=== PATIENT | female | born 1975 | race Caucasian/White ===

== ENCOUNTER 2018-05-30 20:42 | Emergency (ER) | payer SELFPAY ==
[2018-05-30] MEDS ORDERED: Ketorolac 60 MG/2 ML SDV IM ONE (21:05)
--- NOTE | 2018-05-30 21:10 | EDM.PDOC ---
ED HPI GENERAL MEDICAL PROBLEM - General Chief Complaint: Lower Extremity Injury/Pain Stated Complaint: PAIN IN LOWER RIGHT LEG Time Seen by Provider: 05/30/18 20:45 - History of Present Illness INITIAL COMMENTS - FREE TEXT/NARRATIVE: HISTORY AND PHYSICAL: History of present illness: The patient is a 42-year-old female who presents with complaints of right calf pain that started about 4 AM while she was sleeping. She denies any trauma to the area and has no bony pain but says that the pain woke her from sleep it is been persistent all day in her right calf area. It does not radiate to her thigh. The patient says she has had sciatica in the past which sometimes will get aggravated and trigger muscle spasms so she has been dealing with that in the past and she used all of her treatment modalities and the pain did not go away. She took one dose of Motrin 600 mg this morning but nothing else and has been applying topical creams. She denies any neurosensory changes in her foot and has no anterior leg pain noted knee pain and no distal ankle or foot pain. She currently is not describing any lower back pain at this time. The pain in the calf does not radiate up to her thigh posteriorly or anteriorly. The patient was concerned because she had an abdominal hysterectomy and abdominal mass removed the beginning of February. Review of systems: As per history of present illness and below otherwise all systems reviewed and negative. Past medical history: As per history of present illness and as reviewed below otherwise noncontributory. Surgical history: As per history of present illness and as reviewed below otherwise noncontributory. Social history: No reported history of drug or alcohol abuse. Family history: As per history of present illness and as reviewed below otherwise noncontributory. Physical exam: General: Well-developed well-nourished overweight female who is nontoxic and vital signs are noted by me HEENT: Atraumatic, normocephalic, negative for conjunctival pallor or scleral icterus, mucous membranes moist, throat clear, neck supple, nontender, trachea midline. Lungs: Clear to auscultation, breath sounds equal bilaterally, chest nontender. Heart: S1S2, regular rate and rhythm no overt murmurs Abdomen: Soft, nondistended, nontender. NABS Pelvis: Stable nontender. Genitourinary: Deferred. Rectal: Deferred. Extremities: Atraumatic, full range of motion without defects or deficits and there is no leg asymmetry. There is no pedal edema appreciated. There is some mild tenderness when I palpate the calf on the right but there is no popliteal fossa tenderness or anterior medial thigh tenderness with palpation. The legs are negative for cords Neurovascular unremarkable. There are no bony defects tenderness or soft tissue swelling appreciated in the anterior leg. Neuro: Awake, alert, oriented. Cranial nerves II through XII unremarkable. Cerebellum unremarkable. Motor and sensory unremarkable throughout. Exam nonfocal. Diagnostics: Venous Doppler right lower extremity Therapeutics: Toradol Impression: Right calf pain Definitive disposition and diagnosis as appropriate pending reevaluation and review of above. right leg Pain Score (Numeric/FACES): 7 - Related Data Allergies Allergy/AdvReac Type Severity Reaction Status Date / Time Iodinated Contrast- Oral and Allergy Rash Verified 05/30/18 20:56 IV Dye [Iodinated Contrast Media - IV Dye] Home Meds: Home Meds Esomeprazole [NexIUM] 40 mg PO DAILY 08/02/13 [History] Montelukast [Singulair] 10 mg PO DAILY 08/02/13 [History] Albuterol [Proventil Neb Soln] 0.63 mg NEB DAILY 01/09/15 [History] Fluticasone/Salmeterol [Advair Diskus 500-50] 1 puff INH BID 04/22/16 [History] Ibuprofen 600 mg PO ASDIRECTED PRN 05/30/18 [History] Past Medical History Cardiovascular History: Reports: CAD Respiratory History: Reports: Asthma Gastrointestinal History: Reports: Other (See Below) Other Gastrointestinal History: Mass Genitourinary History: Reports: None Neurological History: Reports: Other (See Below) Other Neuro History: sleep apnea Psychiatric History: Reports: None Hematologic History: Reports: Anemia Dermatologic History: Reports: None - Infectious Disease History Infectious Disease History: Reports: Chicken Pox - Past Surgical History HEENT Surgical History: Reports: Tonsillectomy Cardiovascular Surgical History: Reports: Other (See Below) GI Surgical History: Reports: Cholecystectomy Other Musculoskeletal Surgeries/Procedures:: hip surgery Social & Family History - Family History Cardiac: Reports: [place] Endocrine/Metabolic: Reports: Diabetes, Type I, Diabetes, type II Oncologic: Reports: Breast, Pancreatic - Caffeine Use Caffeine Use: Reports: Coffee, Soda Review of Systems - Review of Systems Review Of Systems: ROS reveals no pertinent complaints other than HPI. ED EXAM, GENERAL - Physical Exam Exam: See Below (See dictation) Course - Vital Signs Last Recorded V/S: Last Vital Signs Temp 35.9 C 05/30/18 20:45 Pulse 91 05/30/18 20:45 Resp 18 05/30/18 20:45 BP 193/70 H 05/30/18 20:45 Pulse Ox 96 05/30/18 20:45 - Orders/Labs/Meds Meds: Medications Discontinued Medications Generic Name Dose Route Start Last Admin Trade Name Zuleika PRN Reason Stop Dose Admin Ketorolac Tromethamine 60 mg 05/30/18 21:05 05/30/18 21:23 Toradol IM 05/30/18 21:06 60 mg ONETIME ONE Administration Departure - Departure Time of Disposition: 22:03 Disposition: Home, Self-Care 01 Condition: Good Clinical Impression: Right calf pain - Discharge Information Referrals: PCP,None [Primary Care Provider] - Forms: ED Department Discharge Additional Instructions: The following information is given to patients seen in the emergency department who are being discharged to home. This information is to outline your options for follow-up care. We provide all patients seen in our emergency department with a follow-up referral. The need for follow-up, as well as the timing and circumstances, are variable depending upon the specifics of your emergency department visit. If you don't have a primary care physician on staff, we will provide you with a referral. We always advise you to contact your personal physician following an emergency department visit to inform them of the circumstance of the visit and for follow-up with them and/or the need for any referrals to a consulting specialist. The emergency department will also refer you to a specialist when appropriate. This referral assures that you have the opportunity for followup care with a specialist. All of these measure are taken in an effort to provide you with optimal care, which includes your followup. Under all circumstances we always encourage you to contact your private physician who remains a resource for coordinating your care. When calling for followup care, please make the office aware that this follow-up is from your recent emergency room visit. If for any reason you are refused follow-up, please contact the [facility] emergency department at and ask to speak to the emergency department charge nurse. [facility] Primary care- Internal Medicine and Family [place] [id number] [place] [id number] Ice area after any activities and use [id number] ibuprofen/Advil 600-800 mg every 6-8 hours and you may also add Tylenol. Please fill the prescription for Voltaren gel and apply to the area as you choose.: Schedule follow-up appointment with her provider in the clinic for further care and reevaluation and return here as needed and as discussed
--- NOTE | 2018-05-30 21:59 | US ---
INDICATION: right leg pain RIGHT LOWER EXTREMITY VENOUS DUPLEX ULTRASOUND TECHNIQUE: Duplex sonography using grayscale imaging as well as color and spectral Doppler interrogation was performed over the right lower extremity with attention to the deep venous system. FINDINGS: The right common femoral, femoral, deep femoral, popliteal, and posterior tibial veins show normal compressibility, color Doppler flow, and augmentation response. IMPRESSION: No evidence of deep venous thrombosis in the right lower extremity. CHEPE CARREON MD [facility] Dictated by: Alfredo Carreon MD @ 05/30/2018 21:58:15 (Electronically Signed)
[2018-05-30 22:27] VITALS: BP 140/80
== END 2018-05-30 22:25 | disposition home or self-care (01) ==
LOC: MW.ED 20:42
DX: M79.661 Pain in right lower leg (principal); J45.909 Unspecified asthma, uncomplicated; Z91.041 Radiographic dye allergy status; Z79.899 Other long term (current) drug therapy; Z90.49 Acquired absence of other specified parts of digestive tract; Z98.890 Other specified postprocedural states
CPT/HCPCS: 93971; 96372; 99283; J1885

== ENCOUNTER 2019-05-23 16:24 | Emergency (ER) | payer MEDICAID ==
[2019-05-23] MEDS ORDERED: methylPREDNISolone Sodium Succinate 125 MG/2 ML SDV IM ONE (17:17)
[2019-05-23] MEDS ORDERED: Ketorolac 60 MG/2 ML SDV IM ONE (17:17)
--- NOTE | 2019-05-23 17:23 | EDM.PDOC ---
ED HPI GENERAL MEDICAL PROBLEM - General Chief Complaint: Lower Extremity Injury/Pain Stated Complaint: NERVE PAIN IN ANKLE Time Seen by Provider: 05/23/19 16:29 Source of Information: Reports: Patient History Limitations: Reports: No Limitations - History of Present Illness INITIAL COMMENTS - FREE TEXT/NARRATIVE: HISTORY AND PHYSICAL: History of present illness: Patient is a 43-year-old female who presents to the ED today with concern of an exacerbation of sciatic nerve pain. Patient states she has been dealing with the sciatic nerve pain for about a year and has been in physical therapy for this. Patient states that she is set up to see the neurosurgeon but due to the current outbreak of the cov-ID 19, this has been delayed. Patient states usually when she has exacerbation of her sciatic nerve pain, she gets a shot of Toradol and Solu-Medrol from her primary care provider. Patient states she was unable to make an appointment in the clinic as they are limiting patient's being seen due to the recent outbreak. Patient states that her symptoms today are typical of her usual sciatic nerve pain and has not changed or new. Patient states she does get some "jessica horse" of her right ankle periodically with this which is the most bothersome to her. Patient states when her mom moves a "charley horse" the other way, this improves. Patient denies any loss retention of bowel bladder function or saddle anesthesia. Patient denies fever, chills, chest pain, shortness of breath, or cough. Denies headache, neck stiff ness, change in vision, syncope, or near syncope. Denies nausea, vomiting, abdominal pain, diarrhea, constipation, or dysuria. Has not noted any blood in urine or stool. Patient has been eating and drinking appropriately. Review of systems: As per history of present illness and below otherwise all systems reviewed and negative. Past medical history: As per history of present illness and as reviewed below otherwise noncontributory. Surgical history: As per history of present illness and as reviewed below otherwise noncontributory. Social history: See social history for further information Family history: As per history of present illness and as reviewed below otherwise noncontributory. Physical exam: General: Patient is alert, oriented, and in no acute distress. Patient sitting comfortably on exam table. HEENT: Atraumatic, normocephalic, pupils equal and reactive bilaterally, negative for conjunctival pallor or scleral icterus, mucous membranes moist, TMs normal bilaterally, throat clear, neck supple, nontender, trachea midline. No drooling or trismus noted. No meningeal signs. No hot potato voice noted. Lungs: Clear to auscultation, breath sounds equal bilaterally, chest nontender. Heart: S1S2, regular rate and rhythm without overt murmur Abdomen: Soft, nondistended, nontender. Negative for masses or hepatosplenomegaly. Negative for costovertebral tenderness. Pelvis: Stable nontender. Genitourinary: Deferred. Rectal: Deferred. Skin: Intact, warm, dry. No lesions or rashes noted. Extremities: Patient ambulatory into the ED without difficulty. No obvious deformity of the complete spine. No step-offs, crepitus, or point tenderness to palpation of the complete spine. SLR intact bilaterally. Patellar reflex intact bilaterally. Heel toe gait intact. Atraumatic, negative for cords or calf pain. Neurovascular unremarkable. Neuro: Awake, alert, oriented. Cranial nerves II through XII unremarkable. Cerebellum unremarkable. Motor and sensory unremarkable throughout. Exam nonfocal. Notes: Patient has Flexeril available to her at home. Discussed importance for follow-up with the neurosurgeon as well as her primary care provider. Voices understanding and is agreeable to plan of care. Denies any further questions or concerns at this time. Diagnostics: None Therapeutics: Toradol, Solumedrol Prescription: None Impression: Sciatic nerve pain, right Plan: 1. When resting please lay on a flat firm surface. Limit your mobility to prevent muscle stiffness. Get up to ambulate/move around/gentle stretching multiple times throughout the day. May alternate heat and ice to painful areas. 2. Tylenol as needed for back pain. Otherwise, take the prescribed Flexeril that you have already at home and ibuprofen as directed. Flexeril, this medication may cause drowsiness, so do not take it while driving or needing to be functioning outside of the home. 3. Follow-up with your primary care provider/neurosurgeon as discussed. Return to the ED as needed and as discussed. Definitive disposition and diagnosis as appropriate pending reevaluation and review of above. Right Leg Pain Score (Numeric/FACES): 9 - Related Data Allergies Allergy/AdvReac Type Severity Reaction Status Date / Time Iodinated Contrast Media Allergy Anaphylactic Verified 05/23/19 16:58 [Iodinated Contrast Media - Shock IV Dye] Home Meds: Home Meds Esomeprazole [NexIUM] 40 mg PO DAILY 08/02/13 [History] Montelukast [Singulair] 10 mg PO DAILY 08/02/13 [History] Albuterol [Proventil Neb Soln] 0.63 mg NEB DAILY 01/09/15 [History] Ibuprofen 600 mg PO ASDIRECTED PRN 05/30/18 [History] Cyclobenzaprine [Flexeril] 10 mg PO DAILY 05/23/19 [History] Gabapentin [Neurontin] 400 mg PO TID 05/23/19 [History] Past Medical History Cardiovascular History: Reports: None Respiratory History: Reports: Asthma Gastrointestinal History: Reports: GERD, Other (See Below) Other Gastrointestinal History: Mass Genitourinary History: Reports: None 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: Neurological History: Reports: Other (See Below) Other Neuro History: sleep apnea uses c-pap Psychiatric History: Reports: None Endocrine/Metabolic History: Reports: Obesity/BMI 30+ Hematologic History: Reports: Anemia Immunologic History: Reports: None Oncologic (Cancer) History: Reports: None Dermatologic History: Reports: None - Infectious Disease History Infectious Disease History: Reports: Chicken Pox - Past Surgical History Head Surgeries/Procedures: Reports: None HEENT Surgical History: Reports: Tonsillectomy Cardiovascular Surgical History: Reports: Other (See Below) GI Surgical History: Reports: Cholecystectomy Female Surgical History: Reports: D&C, Hysterectomy Other Musculoskeletal Surgeries/Procedures:: hip surgery Social & Family History - Family History Family Medical History: Noncontributory Cardiac: Reports: [place] Endocrine/Metabolic: Reports: Diabetes, Type I, Diabetes, type II Oncologic: Reports: Breast, Pancreatic - Tobacco Use Smoking Status *Q: Never Smoker - Caffeine Use Caffeine Use: Reports: Coffee, Soda - Recreational Drug Use Recreational Drug Use: No Review of Systems - Review of Systems Review Of Systems: Comprehensive ROS is negative, except as noted in HPI. ED EXAM, GENERAL - Physical Exam Exam: See Below (see dictation) Course - Vital Signs Last Recorded V/S: Last Vital Signs Temp 96.7 F L 05/23/19 16:55 Pulse 105 H 05/23/19 16:55 Resp 22 H 05/23/19 16:55 BP 160/100 H 05/23/19 16:55 Pulse Ox 95 05/23/19 16:55 - Orders/Labs/Meds Orders: Active Orders 24 hr Category Date Time Status Ketorolac [Toradol] Med 05/23/19 17:17 Once 60 mg IM ONETIME ONE methylPREDNISolone Sod Succ [Solu-MEDROL] Med 05/23/19 17:17 Once 125 mg IM ONETIME ONE Departure - Departure Time of Disposition: 17:18 Disposition: Home, Self-Care 01 Clinical Impression: Sciatic nerve pain Qualifiers: Laterality: right Qualified Code(s): M54.31 - Sciatica, right side - Discharge Information Referrals: Valery Lomas, TECHNICAL SUPPORT 1 SOFTWARE ENGINEER [Primary Care Provider] - Additional Instructions: The following information is given to patients seen in the emergency department who are being discharged to home. This information is to outline your options for follow-up care. We provide all patients seen in our emergency department with a follow-up referral. The need for follow-up, as well as the timing and circumstances, are variable depending upon the specifics of your emergency department visit. If you don't have a primary care physician on staff, we will provide you with a referral. We always advise you to contact your personal physician following an emergency department visit to inform them of the circumstance of the visit and for follow-up with them and/or the need for any referrals to a consulting specialist. The emergency department will also refer you to a specialist when appropriate. This referral assures that you have the opportunity for follow-up care with a specialist. All of these measure are taken in an effort to provide you with optimal care, which includes your follow-up. Under all circumstances we always encourage you to contact your private physician who remains a resource for coordinating your care. When calling for follow-up care, please make the office aware that this follow-up is from your recent emergency room visit. If for any reason you are refused follow-up, please contact the [facility] Emergency Department at and asked to speak to the emergency department charge nurse. [facility] [address] [place] [address] [phone] [place] [address] 1. When resting please lay on a flat firm surface. Limit your mobility to prevent muscle stiffness. Get up to ambulate/move around/gentle stretching multiple times throughout the day. May alternate heat and ice to painful areas. 2. Tylenol as needed for back pain. Otherwise, take the prescribed Flexeril that you have already at home and ibuprofen as directed. Flexeril, this medication may cause drowsiness, so do not take it while driving or needing to be functioning outside of the home. 3. Follow-up with your primary care provider/neurosurgeon as discussed. Return to the ED as needed and as discussed. Sepsis Event Note - Evaluation Sepsis Screening Result: No Definite Risk - Focused Exam Vital Signs: Vital Signs Temp Pulse Resp BP Pulse Ox 05/23/19 16:55 96.7 F L 105 H 22 H 160/100 H 95 Date Exam was Performed: 05/23/19 Time Exam was Performed: 17:18 - My Orders Last 24 Hours: My Active Orders 05/23/19 17:17 Ketorolac [Toradol] 60 mg IM ONETIME ONE methylPREDNISolone Sod Succ [Solu-MEDROL] 125 mg IM ONETIME ONE - Assessment/Plan Last 24 Hours: My Active Orders 05/23/19 17:17 Ketorolac [Toradol] 60 mg IM ONETIME ONE methylPREDNISolone Sod Succ [Solu-MEDROL] 125 mg IM ONETIME ONE
[2019-05-23 17:47] VITALS: BP 163/84; PULSE 95
== END 2019-05-23 17:47 | disposition home or self-care (01) ==
LOC: MW.ED 16:24
DX: M54.31 Sciatica, right side (principal); J45.909 Unspecified asthma, uncomplicated; K21.9 Gastro-esophageal reflux disease without esophagitis; E66.9 Obesity, unspecified; Z68.43 Body mass index [BMI] 50.0-59.9, adult; Z91.041 Radiographic dye allergy status; Z79.899 Other long term (current) drug therapy
CPT/HCPCS: 96372; 99283; J1885; J2930

== ENCOUNTER 2019-11-20 15:56 | Emergency (ER) | payer MEDICAID ==
--- NOTE | 2019-11-20 16:01 | EDM.PDOC ---
ED HPI GENERAL MEDICAL PROBLEM - General Stated Complaint: BACK PAIN Time Seen by Provider: 11/20/19 15:57 Source of Information: Reports: Patient History Limitations: Reports: No Limitations - History of Present Illness INITIAL COMMENTS - FREE TEXT/NARRATIVE: 44-year-old obese female with history of hysterectomy presents with generalized malaise, nausea, feeling shaky and weak today. 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 She felt so weak afterwards she felt like she wanted to collapse. She has a history of chronic back pain and is currently undergoing physical therapy but her pain got worse today, localized in the lower back, described as aching tightness, nonradiating, moderate, constant, exacerbated with movement, with no alleviating factors. She drank 2 bottles of water today. She denies fever, chills, vomiting, diarrhea, urinary or fecal incontinence, pain, shortness of breath, abdominal pain. She took Mobic and gabapentin for her low back pain which offered mild relief. ROS: A 10-point review of systems, other than pertinent positives and negatives as stated per HPI, is otherwise negative Past medical history: No additional pertinent history Past Surgical history: No additional pertinent history Social history: No additional pertinent history Family history: No additional pertinent history PHYSICAL EXAM General: AOx4, GCS = 15, obese, mild distress HEENT: dry mucous membrane Neck: supple, no meningismus, no Kernig or Brudzinski Cardiac: S1S2 RRR Respiratory: CTAB, no crackles or rales, no wheezing Abdomen: Soft, nontender, no rebound or guarding, nondistended, no pulsatile m ass. Back: nontender to C/T/L-spine. Tenderness to lumbar bilateral paraspinal muscle with spasm. Musculoskeletal: NVI distally, no deformity Neuro: No focal deficits back Pain Score (Numeric/FACES): 10 - Related Data Allergies Allergy/AdvReac Type Severity Reaction Status Date / Time Iodinated Contrast Media Allergy Anaphylactic Verified 05/23/19 16:58 [Iodinated Contrast Media - Shock IV Dye] Home Meds: Home Meds Montelukast [Singulair] 10 mg PO DAILY 08/02/13 [History] Albuterol [Proventil Neb Soln] 0.63 mg NEB DAILY 01/09/15 [History] Ibuprofen 600 mg PO ASDIRECTED PRN 05/30/18 [History] Cyclobenzaprine [Flexeril] 10 mg PO DAILY 05/23/19 [History] Gabapentin [Neurontin] 800 mg PO BID 05/23/19 [History] Meloxicam [Mobic] 15 mg PO DAILY 11/20/19 [History] Pantoprazole Sodium [Protonix] 40 mg PO DAILY 11/20/19 [History] Past Medical History Cardiovascular History: Reports: None Respiratory History: Reports: Asthma Gastrointestinal History: Reports: GERD, Other (See Below) Other Gastrointestinal History: Mass Genitourinary History: Reports: None 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: Neurological History: Reports: Other (See Below) Other Neuro History: sleep apnea uses c-pap Psychiatric History: Reports: None Endocrine/Metabolic History: Reports: Obesity/BMI 30+ Hematologic History: Reports: Anemia Immunologic History: Reports: None Oncologic (Cancer) History: Reports: None Dermatologic History: Reports: None - Infectious Disease History Infectious Disease History: Reports: Chicken Pox - Past Surgical History Head Surgeries/Procedures: Reports: None HEENT Surgical History: Reports: Tonsillectomy Cardiovascular Surgical History: Reports: Other (See Below) GI Surgical History: Reports: Cholecystectomy Female Surgical History: Reports: D&C, Hysterectomy Other Musculoskeletal Surgeries/Procedures:: hip surgery Social & Family History - Family History Family Medical History: Noncontributory Cardiac: Reports: [place] Endocrine/Metabolic: Reports: Diabetes, Type I, Diabetes, type II Oncologic: Reports: Breast, Pancreatic - Caffeine Use Caffeine Use: Reports: Coffee, Soda ED ROS GENERAL - Review of Systems Review Of Systems: See Below (see dictation) ED EXAM, GENERAL - Physical Exam Exam: See Below (see dictation) EKG INTERPRETATION EKG Interpretation Comments: 101 bpm, sinus tachycardia, normal QRS interval, no STEMI. EKG and rhythm strip interpreted by me at 1701 Course - Vital Signs Last Recorded V/S: Last Vital Signs Temp 97.5 F 11/20/19 16:09 Pulse 106 H 11/20/19 16:09 Resp 20 11/20/19 16:09 BP 105/49 L 11/20/19 16:09 Pulse Ox 95 11/20/19 16:09 - Orders/Labs/Meds Orders: Active Orders 24 hr Category Date Time Status EKG Documentation Completion [RC] STAT Care 11/20/19 16:41 Active Sodium Chloride 0.9% [Saline Flush] Med 11/20/19 16:40 Active 10 ml FLUSH ASDIRECTED PRN Sodium Chloride 0.9% [Saline Flush] Med 11/20/19 16:40 Active 2.5 ml FLUSH ASDIRECTED PRN Saline Lock Insert [OM.PC] Stat Oth 11/20/19 16:41 Ordered Medication Orders Sodium Chloride (Saline Flush) 10 ml FLUSH ASDIRECTED PRN PRN Reason: Keep Vein Open Sodium Chloride (Saline Flush) 2.5 ml FLUSH ASDIRECTED PRN PRN Reason: Keep Vein Open Labs: Laboratory Tests 11/20/19 11/20/19 11/20/19 Range/Units 17:02 17:02 17:47 WBC 12.06 H (4.0-11.0) K/uL RBC 4.87 (4.30-5.90) M/uL Hgb 12.4 (12.0-16.0) g/dL Hct 40.1 (36.0-46.0) % MCV 82.3 (80.0-98.0) fL MCH 25.5 L (27.0-32.0) pg MCHC 30.9 L (31.0-37.0) g/dL RDW Std Deviation 48.4 (28.0-62.0) fl RDW Coeff of Elvis 16 H (11.0-15.0) % Plt Count 372 (150-400) K/uL MPV 9.40 (7.40-12.00) fL Neut % (Auto) 81.2 H (48.0-80.0) % Lymph % (Auto) 14.1 L (16.0-40.0) % [place] % (Auto) 3.2 (0.0-15.0) % Eos % (Auto) 1.2 (0.0-7.0) % Baso % (Auto) 0.3 (0.0-1.5) % Neut # (Auto) 9.8 H (1.4-5.7) K/uL Lymph # (Auto) 1.7 (0.6-2.4) K/uL [place] # (Auto) 0.4 (0.0-0.8) K/uL Eos # (Auto) 0.1 (0.0-0.7) K/uL Baso # (Auto) 0.0 (0.0-0.1) K/uL Nucleated RBC % 0.0 /100WBC Nucleated RBCs # 0 K/uL Sodium 142 (136-145) mmol/L Potassium 3.2 L (3.5-5.1) mmol/L Chloride 104 (98-107) mmol/L Carbon Dioxide 28.8 (21.0-32.0) mmol/L BUN 19 H (7.0-18.0) mg/dL Creatinine 1.3 H (0.6-1.0) mg/dL Est Cr Clr Drug Dosing TNP Estimated GFR (MDRD) 44.3 ml/min Glucose 113 H (74-106) mg/dL Calcium 8.6 (8.5-10.1) mg/dL Total Bilirubin 0.4 (0.2-1.0) mg/dL AST 41 H (15-37) IU/L ALT 40 (14-63) IU/L Alkaline Phosphatase 122 H (46-116) U/L Troponin I < 0.050 (0.000-0.056) ng/mL Total Protein 7.4 (6.4-8.2) g/dL Albumin 3.5 (3.4-5.0) g/dL Globulin 3.9 (2.6-4.0) g/dL Albumin/Globulin Ratio 0.9 (0.9-1.6) Urine Color YELLOW Urine Appearance SLT CLOUDY Urine pH 5.5 (5.0-8.0) Ur Specific [place]man >= 1.030 (1.001-1.035) Urine Protein TRACE H (NEGATIVE) mg/dL Urine Glucose (UA) NEGATIVE (NEGATIVE) mg/dL Urine Ketones 15 H (NEGATIVE) mg/dL Urine Occult Blood TRACE-INTACT H (NEGATIVE) Urine Nitrite NEGATIVE (NEGATIVE) Urine Bilirubin SMALL H (NEGATIVE) Urine Ictotest NEGATIVE Urine Urobilinogen 0.2 (<2.0) EU/dL Ur Leukocyte Esterase NEGATIVE (NEGATIVE) Urine RBC 0-3 (0-2/HPF) Urine WBC 0-2 (0-5/HPF) Ur Epithelial Cells MODERATE (NONE-FEW) Urine Bacteria 2+ H (NEGATIVE) Meds: Medications Generic Name Dose Route Start Last Admin Trade Name Freq PRN Reason Stop Dose Admin Sodium Chloride 10 ml 11/20/19 16:40 Saline Flush FLUSH ASDIRECTED PRN Keep Vein Open Sodium Chloride 2.5 ml 11/20/19 16:40 Saline Flush FLUSH ASDIRECTED PRN Keep Vein Open Discontinued Medications Generic Name Dose Route Start Last Admin Trade Name Freq PRN Reason Stop Dose Admin Acetaminophen 0 mg 11/20/19 16:40 11/20/19 17:28 Tylenol PO 11/20/19 16:41 Not Given ONETIME ONE Lactated Ringer's 1,000 mls @ 999 mls/hr 11/20/19 16:40 11/20/19 17:25 Ringers, Lactated IV 11/20/19 17:40 999 mls/hr .BOLUS ONE Administration Ketorolac Tromethamine 30 mg 11/20/19 16:46 11/20/19 17:19 Toradol IM 11/20/19 16:47 30 mg ONETIME ONE Administration - Re-Assessments/Exams Free Text/Narrative Re-Assessment/Exam: 11/20/19 18:45 After Decadron and IV Toradol and IV fluids in the ER, the patient improved and is currently stable for discharge. I performed a repeat exam and did not appreciate new abnormal findings. Patient exhibits normal vital signs and has a normal gait on road test. I advised the patient to return to the ER for reevaluation if symptoms worsened, including fever, worsening pain, or any other worrisome symptoms. I instructed the patient to follow up with their PCP within 2-3 days. Directed her to continue taking her Mobic and muscle relaxers that she has at home. Ice pack to affected site. MEDICAL DECISION MAKING: I reviewed the patients past medical records, lab and radiographic findings. I discussed the case with the patient. My differential diagnosis included: Musculoskeletal strain, heat exhaustion, electrolyte abnormality. Patient's EKG and troponin were unremarkable, I do not suspect atypical chest pain. Patient's back pain is suggestive of musculoskeletal strain. There are no complaints of urinary or fecal incontinence, focal numbness or weakness. The patient has a normal gait in the ER. There is no evidence of fever, IV drug use, recent back surgery, or immunocompromised state. I do not suspect caude equine syndrome or cord compression which would warrant further imaging. Departure - Departure Time of Disposition: 18:46 Disposition: Home, Self-Care 01 Condition: Good Clinical Impression: Low back strain, Dehydration, Overexertion due to repetitive movements - Discharge Information *PRESCRIPTION DRUG MONITORING PROGRAM REVIEWED*: Not Applicable *COPY OF PRESCRIPTION DRUG MONITORING REPORT IN PATIENT ADY: Not Applicable Instructions: Lumbar Sprain, Muscle Strain, [id number], Dehydration, Adult, Flox-[id number], How to Use Cold Therapy, [id number] Referrals: Rusty Richardson MD [Ordering Only Provider] - 3 Days Forms: ED Department Discharge Additional Instructions: The need for follow-up, as well as the timing and circumstances, are variable depending upon the specifics of your emergency department visit. If you don't have a primary care physician on staff, we will provide you with a referral. We always advise you to contact your personal physician following an emergency department visit to inform them of the circumstance of the visit and for follow-up with them and/or the need for any referrals to a consulting specialist. The emergency department will also refer you to a specialist when appropriate. This referral assures that you have the opportunity for follow-up care with a specialist. All of these measure are taken in an effort to provide you with optimal care, which includes your follow-up. Under all circumstances we always encourage you to contact your private physician who remains a resource for coordinating your care. When calling for follow-up care, please make the office aware that this follow-up is from your recent emergency room visit. If for any reason you are refused follow-up, please contact the [facility] Emergency Department at and asked to speak to the emergency department charge nurse. If you do not have a primary care doctor, please follow up with the clinics below within 3-5 days. [facility] [place] [address] [place] [address] [facility] [address] [place] [address] Sepsis Event Note (ED) - Focused Exam Vital Signs: Vital Signs Temp Pulse Resp BP Pulse Ox 11/20/19 16:09 97.5 F 106 H 20 105/49 L 95 - My Orders Last 24 Hours: My Active Orders 11/20/19 16:40 Sodium Chloride 0.9% [Saline Flush] 10 ml FLUSH ASDIRECTED PRN Sodium Chloride 0.9% [Saline Flush] 2.5 ml FLUSH ASDIRECTED PRN 11/20/19 16:41 EKG Documentation Completion [RC] STAT Saline Lock Insert [OM.PC] Stat - Assessment/Plan Last 24 Hours: My Active Orders 11/20/19 16:40 Sodium Chloride 0.9% [Saline Flush] 10 ml FLUSH ASDIRECTED PRN Sodium Chloride 0.9% [Saline Flush] 2.5 ml FLUSH ASDIRECTED PRN 11/20/19 16:41 EKG Documentation Completion [RC] STAT Saline Lock Insert [OM.PC] Stat
[2019-11-20] MEDS ORDERED: Acetaminophen 325 MG/10.15 ML ML PO ONE (16:40)
[2019-11-20] MEDS ORDERED: Lactated Ringers 1,000 ML IV ONE (16:40)
[2019-11-20] MEDS ORDERED: Sodium Chloride 0.9% 10 ML Syringe FLUSH PRN (16:40)
[2019-11-20] MEDS ORDERED: Sodium Chloride 0.9% 2.5 ML Syringe FLUSH PRN (16:40)
[2019-11-20] MEDS ORDERED: Ketorolac 30 MG/ML SDV IM ONE (16:46)
[2019-11-20 17:36] LABS: BLOOD UREA NITROGEN,BUN 19 mg/dL (7.0-18.0); CARBON DIOXIDE,CO2 28.8 mmol/L (21.0-32.0); CHLORIDE,CL 104 mmol/L (98-107); GLUCOSE RANDOM 113 mg/dL (74-106); POTASSIUM,K 3.2 mmol/L (3.5-5.1); SODIUM,NA 142 mmol/L (136-145)
--- NOTE | 2019-11-20 18:29 | CR ---
Chest: Frontal view of the chest was obtained. Comparison: Prior chest x-ray of 04/22/16. Heart size at the upper limits of normal. Lungs are clear with no acute parenchymal change. Bony structures are grossly intact. Impression: 1. Nothing acute is seen on frontal chest x-ray. Diagnostic code #1 Study was dictated in MDT
[2019-11-20] MEDS ORDERED: Dexamethasone 10 MG/ML SDV IVPUSH ONE (18:49)
[2019-11-20 20:37] VITALS: BP 141/80; PULSE 85
== END 2019-11-20 19:19 | disposition home or self-care (01) ==
LOC: MW.ED 15:56
DX: S39.012A Strain of muscle, fascia and tendon of lower back, initial encounter (principal); E86.0 Dehydration; E66.9 Obesity, unspecified; K21.9 Gastro-esophageal reflux disease without esophagitis; J45.909 Unspecified asthma, uncomplicated; Z91.041 Radiographic dye allergy status; Z79.899 Other long term (current) drug therapy; X50.3XXA Overexertion from repetitive movements, initial encounter
CPT/HCPCS: 36415; 71045; 80053; 81001; 84484; 85025; 93005; 96361; 96372; 96374; 99285; J1100; J1885; J7120

== ENCOUNTER 2020-03-02 20:43 | Emergency (ER) | payer MEDICAID, OTHER ==
[2020-03-02] MEDS ORDERED: methylPREDNISolone Sodium Succinate 125 MG/2 ML SDV IM ONE (21:08)
[2020-03-02] MEDS ORDERED: Albuterol/Ipratropium 3.0-0.5 MG/3 ML Neb Soln NEB ONE (21:09)
--- NOTE | 2020-03-02 21:21 | EDM.PDOC ---
ED HPI GENERAL MEDICAL PROBLEM - General Chief Complaint: General Stated Complaint: SICK Time Seen by Provider: 03/02/20 20:44 Source of Information: Reports: Patient History Limitations: Reports: No Limitations - History of Present Illness INITIAL COMMENTS - FREE TEXT/NARRATIVE: Presents to the emergency room complaining of a fall that exacerbating existing problems. The patient is a bit anxious and talks continuously. She complains that last evening she fell in a parking lot on the ice and injured her left ankle and then trying to get up she fell again. This scared her. She has a lot of chronic low back problems and she feels like her back is swollen. When her back is swollen it makes her asthma flareup. She states when she was younger she was hospitalized yearly for an asthma flare but it [the asthma] has been well controlled for some time. She states she went to a professor of engineering who told her she had "silent asthma" and that when it flares she will "just stop breathing and ". She has PRIMITIVO on CPAP nightly. Currently she has no symptoms; no wheeze, shortness of breath, cough. She states that she usually just comes in to the ER and gets a breathing treatment and shot of solumedrol and is fine. Her left ankle hurts and is tender on the top of her foot and on the lateral side but she reports no bruising or swelling. She freely admits that her morbid obesity exacerbates her back problems, sleep apnea, general pain, etc. She states her back pain is at baseline and that she did not fall on her back or specifically injure it. 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 Back and L ankle Pain Score (Numeric/FACES): 10 - Related Data Allergies Allergy/AdvReac Type Severity Reaction Status Date / Time Iodinated Contrast Media Allergy Anaphylactic Verified 03/02/20 20:58 [Iodinated Contrast Media - Shock IV Dye] Home Meds: Home Meds Montelukast [Singulair] 10 mg PO DAILY 08/02/13 [History] Albuterol [Proventil Neb Soln] 0.63 mg NEB DAILY 01/09/15 [History] Ibuprofen 600 mg PO ASDIRECTED PRN 05/30/18 [History] Cyclobenzaprine [Flexeril] 10 mg PO DAILY 05/23/19 [History] Gabapentin [Neurontin] 800 mg PO BID 05/23/19 [History] Meloxicam [Mobic] 15 mg PO DAILY 11/20/19 [History] Pantoprazole Sodium [Protonix] 40 mg PO DAILY 11/20/19 [History] Past Medical History Cardiovascular History: Reports: None Respiratory History: Reports: Asthma Gastrointestinal History: Reports: GERD, Other (See Below) Other Gastrointestinal History: Mass Genitourinary History: Reports: None 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: Neurological History: Reports: Other (See Below) Other Neuro History: sleep apnea uses c-pap Psychiatric History: Reports: None Endocrine/Metabolic History: Reports: Obesity/BMI 30+ Hematologic History: Reports: Anemia Immunologic History: Reports: None Oncologic (Cancer) History: Reports: None Dermatologic History: Reports: None - Infectious Disease History Infectious Disease History: Reports: Chicken Pox - Past Surgical History Head Surgeries/Procedures: Reports: None HEENT Surgical History: Reports: Tonsillectomy Cardiovascular Surgical History: Reports: Other (See Below) GI Surgical History: Reports: Cholecystectomy Female Surgical History: Reports: D&C, Hysterectomy Other Musculoskeletal Surgeries/Procedures:: hip surgery Social & Family History - Family History Family Medical History: No Pertinent Family History Cardiac: Reports: [place] Endocrine/Metabolic: Reports: Diabetes, Type I, Diabetes, type II Oncologic: Reports: Breast, Pancreatic - Caffeine Use Caffeine Use: Reports: Coffee, Soda ED ROS GENERAL - Review of Systems Review Of Systems: Comprehensive ROS is negative, except as noted in HPI. ED EXAM, GENERAL - Physical Exam Exam: See Below Exam Limited By: No Limitations General Appearance: Alert, No Apparent Distress Ears: Normal External Exam Nose: Normal Inspection Throat/Mouth: Normal Inspection Head: Atraumatic, Normocephalic Neck: Normal Inspection Respiratory/Chest: No Respiratory Distress, Lungs Clear, Normal Breath Sounds Cardiovascular: Regular Rate, Rhythm, No Murmur Back Exam: Other (Spinal and paraspinal tenderness in the lumbar area. The patient cried out and started crying when I touched that part of her back. She states it is always this way.) Extremities: Normal Inspection, Other (Ankle and foot without swelling, ecchymosis, erythema. Full range of motion of the ankle and toes without hesitation or limitation. Tender lateral. CMS intact distally, pedal and posttibial pulses strong) Neurological: Alert, Oriented, Normal Cognition Skin Exam: Warm, Dry, Intact, Normal Color, No Rash Course - Vital Signs Last Recorded V/S: Last Vital Signs Temp 36.1 C 03/02/20 21:00 Pulse 95 03/02/20 21:00 Resp 18 03/02/20 21:00 BP 149/92 H 03/02/20 21:00 Pulse Ox 97 03/02/20 21:00 - Orders/Labs/Meds Orders: Active Orders 24 hr Category Date Time Status RT Aerosol Therapy [RC] ASDIRECTED Care 03/02/20 21:09 Ordered Meds: Medications Discontinued Medications Generic Name Dose Route Start Last Admin Trade Name Jordanq PRN Reason Stop Dose Admin Albuterol/Ipratropium 3 ml 03/02/20 21:09 03/02/20 21:34 Duoneb 3.0-0.5 Mg/3 Ml NEB 03/02/20 21:10 3 ml ONETIME ONE Administration Ketorolac Tromethamine 60 mg 03/02/20 21:30 03/02/20 21:32 Toradol IM 03/02/20 21:31 60 mg ONETIME ONE Administration Ketorolac Tromethamine Confirm 03/02/20 21:30 03/02/20 21:34 Toradol Administered 03/02/20 21:31 Not Given Dose 60 mg .ROUTE .STK-MED ONE Methylprednisolone Sodium Succinate 125 mg 03/02/20 21:08 03/02/20 21:29 Solu-Medrol IM 03/02/20 21:09 125 mg ONETIME ONE Administration Departure - Departure Time of Disposition: 21:47 Disposition: Home, Self-Care 01 Condition: Good Clinical Impression: Ankle sprain Qualifiers: Encounter type: initial encounter Involved ligament of ankle: unspecified ligament Laterality: left Qualified Code(s): S93.402A - Sprain of unspecified ligament of left ankle, initial encounter - Discharge Information Referrals: Valery Lomas BORDER PATROL OFFICER [Primary Care Provider] - Forms: ED Department Discharge Additional Instructions: The following information is given to patients seen in the emergency department who are being discharged to home. This information is to outline your options for follow-up care. We provide all patients seen in our emergency department with a follow-up referral. The need for follow-up, as well as the timing and circumstances, are variable depending upon the specifics of your emergency department visit. If you don't have a primary care physician on staff, we will provide you with a referral. We always advise you to contact your personal physician following an emergency department visit to inform them of the circumstance of the visit and for follow-up with them and/or the need for any referrals to a consulting specialist. The emergency department will also refer you to a specialist when appropriate. This referral assures that you have the opportunity for follow-up care with a specialist. All of these measure are taken in an effort to provide you with optimal care, which includes your follow-up. Under all circumstances we always encourage you to contact your private physician who remains a resource for coordinating your care. When calling for follow-up care, please make the office aware that this follow-up is from your recent emergency room visit. If for any reason you are refused follow-up, please contact the [facility] Emergency Department at and asked to speak to the emergency department charge nurse. 1. Use your inhalers daily as prescribed 2. Elevate left ankle. Cool packs 20 minutes every 3-4 hours to prevent swelling 3. Aleve 2 tabs a.m. and p.m. or ibuprofen 2-3 tabs 3 times daily with food. 4. Follow-up with your primary provider. Sepsis Event Note (ED) - Evaluation Sepsis Screening Result: No Definite Risk - Focused Exam Vital Signs: Vital Signs Temp Pulse Resp BP Pulse Ox 03/02/20 21:00 36.1 C 95 18 149/92 H 97 - My Orders Last 24 Hours: My Active Orders 03/02/20 21:09 RT Aerosol Therapy [RC] ASDIRECTED - Assessment/Plan Last 24 Hours: My Active Orders 03/02/20 21:09 RT Aerosol Therapy [RC] ASDIRECTED
[2020-03-02] MEDS ORDERED: Ketorolac 60 MG/2 ML SDV ONE (21:30)
[2020-03-02] MEDS ORDERED: Ketorolac 60 MG/2 ML SDV IM ONE (21:30)
--- NOTE | 2020-03-02 21:35 | CR ---
Indication: Pain. Technique: Three views of the left ankle. Comparison: None Findings: Ankle mortise is intact. The talar dome is intact. No acute fracture or subluxation is identified. A small plantar calcaneal spur is identified. Impression: No acute fracture. Dictated by Krystina Sarabia MD @ Mar 02 2020 9:34PM Signed by Dr. Krystina Sarabia @ Mar 02 2020 9:34PM
[2020-03-02 23:00] VITALS: BP 130/65; PULSE 90
== END 2020-03-02 22:30 | disposition home or self-care (01) ==
LOC: MW.ED 20:43
DX: S93.402A Sprain of unspecified ligament of left ankle, initial encounter (principal); M54.5 Low back pain; J45.909 Unspecified asthma, uncomplicated; K21.9 Gastro-esophageal reflux disease without esophagitis; E66.9 Obesity, unspecified; Z91.041 Radiographic dye allergy status; Z90.49 Acquired absence of other specified parts of digestive tract; Z90.710 Acquired absence of both cervix and uterus; Z79.899 Other long term (current) drug therapy; Z68.41 Body mass index [BMI] 40.0-44.9, adult; W00.0XXA Fall on same level due to ice and snow, initial encounter; Y92.481 Parking lot as the place of occurrence of the external cause
CPT/HCPCS: 73610; 94640; 96372; 99283; J1885; J2930; J7620-GY

== ENCOUNTER 2020-03-29 17:25 | Emergency (ER) | payer MEDICAID, OTHER ==
--- NOTE | 2020-03-29 17:41 | EDM.PDOC ---
ED HPI GENERAL MEDICAL PROBLEM - General Chief Complaint: Back Pain or Injury Stated Complaint: LOWER BACK PAIN Time Seen by Provider: 03/29/20 17:31 Source of Information: Reports: Patient History Limitations: Reports: No Limitations - History of Present Illness INITIAL COMMENTS - FREE TEXT/NARRATIVE: HISTORY AND PHYSICAL: History of present illness: Patient is a 44-year-old female who presents to the emergency room with complaints of left low back pain. She states she has chronic back pain over this last few years, states it flares up every few months requiring additional pain medications. She has an MRI scheduled in the next 2 weeks for her chronic back pain. Denies any injury, trauma or falls. Patient denies any fever, chills, headache, change in vision, syncope or near syncope. Denies any chest pain, shortness of breath or cough. Denies any abdominal pain, nausea, vomiting, diarrhea, constipation or dysuria. Has not noted any blood in urine or stool. Patient has been eating and drinking appropriately. Review of systems: As per history of present illness and below otherwise all systems reviewed and negative. Past medical history: As per history of present illness and as reviewed below otherwise noncontributory. Surgical history: As per history of present illness and as reviewed below otherwise noncontributory. Social history: See social history for further information Family history: As per history of present illness and as reviewed below otherwise noncontributory. Physical exam: General: Well developed and well nourished. Alert and orientated x 3. Nontoxic in appearance and in no acute distress. Vital signs are stable and have been reviewed by me. Nursing notes were reviewed. HEENT: Atraumatic, normocephalic, pupils equal and reactive bilaterally, negative for conjunctival pallor or scleral icterus, mucous membranes moist,trachea midline. No drooling or trismus noted. No meningeal signs. No hot potato voice noted. Lungs: Clear to auscultation bilaterally. No wheezes, rales, or rhonchi. Chest nontender. Normal work of breathing, no accessory muscles used. Heart: S1S2, regular rate and rhythm without overt murmur, gallops, or rubs. No JVD. No peripheral edema Abdomen: Soft, obese, nontender. Negative for masses or costovertebral tenderness. C-spine/Back: No pinpoint vertebral tenderness upon palpation. No crepitus, s tep-offs or obvious deformities. Paraspinous muscular tenderness to the mid left lumbar region. Patient is ambulatory into the emergency room without difficulty or deficit. Able to rock back on heels and walk on toes. Denies any urinary or fecal incontinence. Denies any numbness, tingling or saddle paresthesia. No concerns of serious infection, fracture or cord compression, or cauda equina syndrome. Deep tendon reflexes brisk bilaterally. Skin: Intact, warm, dry. No lesions or rashes noted. Hematologic: No petechiae or purpra. Mucosa appropriate color and normal nail bed color and refill. Extremities: Atraumatic, moves all extremities per self without difficulty or deficits, negative for cords or calf pain. Neurovascular unremarkable. Neuro: Awake, alert, oriented. Cranial nerves II through XII unremarkable. Cerebellum unremarkable. Motor and sensory unremarkable throughout. Exam nonfocal. Psychiatric: Mood and affect are appropriate. Normal thought process. Answering questions appropriately. Notes: *This patient was seen and evaluated during the 2019 SARS-CoV-2 novel coronavirus pandemic period. Community viral transmission is ongoing at time of this encounter and the emergency department is operating under pandemic response procedures. Patient's physical exam is within normal limits. I did discuss with her the option of imaging although this is chronic and she has had multiple x-rays through [facility] in the past. She declines wanting any imaging. She states sweats worked for her in the past is Toradol, Solu-Medrol and muscle relaxers. I have talked with the patient about today's findings, in addition to providing specific details for plan of care. Reassessment at the time of disposition demonstrates that the patient is in no acute distress. The patient is stable for discharge, counseling was provided and we discussed in great detail signs and symptoms that would prompt them to return to the Emergency Department. Medication, follow up and supportive care measures were reviewed and discussed. Voices understanding and is agreeable to plan of care. Denies any further questions or concerns at this time. Diagnostics: Declines Therapeutics: Solu-Medrol, Norflex Prescription: Flexeril Impression: Acute on chronic back pain Plan: 1. The medication you received today does cause drowsiness, so do not drive for the remaining day 2. When resting please lay on a flat firm surface. Limit your immobility to prevent muscle stiffness. Get up to ambulate/move around/gentle stretching multiple times throughout the day. May alternate heat and ice to the painful areas 3. Tylenol as needed for back pain. Otherwise take the prescribed Flexeril as directed. Flexeril as a muscle relaxant, this medication may cause drowsiness a do not take it will driving her needing to be functioning outside of the house. 4. Please follow-up with your primary care provider as we discussed. Keep your appointment for your back MRI and follow-up with your provider for further pain management. Return to the ED as needed and as discussed. Definitive disposition and diagnosis as appropriate pending reevaluation and review of above. Left Lower Back Pain Score (Numeric/FACES): 8 - Related Data Allergies Allergy/AdvReac Type Severity Reaction Status Date / Time Iodinated Contrast Media Allergy Anaphylactic Verified 03/29/20 17:37 [Iodinated Contrast Media - Shock IV Dye] Home Meds: Home Meds Montelukast [Singulair] 10 mg PO DAILY 08/02/13 [History] Albuterol [Proventil Neb Soln] 0.63 mg NEB DAILY 01/09/15 [History] Ibuprofen 600 mg PO ASDIRECTED PRN 05/30/18 [History] Cyclobenzaprine [Flexeril] 10 mg PO DAILY 05/23/19 [History] Gabapentin [Neurontin] 800 mg PO BID 05/23/19 [History] Meloxicam [Mobic] 15 mg PO DAILY 11/20/19 [History] Pantoprazole Sodium [Protonix] 40 mg PO DAILY 11/20/19 [History] Cyclobenzaprine [Flexeril] 10 mg PO TID PRN #21 tab 03/29/20 [Rx] Past Medical History Cardiovascular History: Reports: None Respiratory History: Reports: Asthma Gastrointestinal History: Reports: GERD, Other (See Below) Other Gastrointestinal History: Mass , abdominal hyst Genitourinary History: Reports: None COMM[employer] C[employer]US T[employer]ER History: Reports: Neurological History: Reports: Other (See Below) Other Neuro History: sleep apnea uses c-pap Psychiatric History: Reports: None Endocrine/Metabolic History: Reports: Obesity/BMI 30+ Hematologic History: Reports: Anemia Immunologic History: Reports: None Oncologic (Cancer) History: Reports: None Dermatologic History: Reports: None - Infectious Disease History Infectious Disease History: Reports: Chicken Pox - Past Surgical History Head Surgeries/Procedures: Reports: None HEENT Surgical History: Reports: Tonsillectomy Cardiovascular Surgical History: Reports: Other (See Below) GI Surgical History: Reports: Cholecystectomy Female Surgical History: Reports: D&C, Hysterectomy Other Musculoskeletal Surgeries/Procedures:: hip surgery Social & Family History - Family History Family Medical History: No Pertinent Family History Cardiac: Reports: [place] Endocrine/Metabolic: Reports: Diabetes, Type I, Diabetes, type II Oncologic: Reports: Breast, Pancreatic - Caffeine Use Caffeine Use: Reports: None ED ROS GENERAL - Review of Systems Review Of Systems: Comprehensive ROS is negative, except as noted in HPI. ED EXAM,LOWER BACK PAIN/INJURY - Physical Exam Exam: See Below (See dictation) Course - Vital Signs Last Recorded V/S: Last Vital Signs Temp 97 F 03/29/20 17:37 Pulse 100 03/29/20 17:37 Resp 20 03/29/20 17:37 BP 137/75 03/29/20 17:37 Pulse Ox 95 03/29/20 17:37 - Orders/Labs/Meds Meds: Medications Discontinued Medications Generic Name Dose Route Start Last Admin Trade Name Freq PRN Reason Stop Dose Admin Methylprednisolone Sodium Succinate 125 mg 03/29/20 17:45 Solu-Medrol IM 03/29/20 17:46 ONETIME ONE Orphenadrine Citrate 60 mg 03/29/20 17:45 Norflex IM 03/29/20 17:46 ONETIME ONE Departure - Departure Time of Disposition: 17:59 Disposition: Home, Self-Care 01 Clinical Impression: Acute exacerbation of chronic low back pain - Discharge Information Prescriptions: Cyclobenzaprine [Flexeril] 10 mg PO TID PRN #21 tab PRN Reason: Muscle Spasm Instructions: Muscle Strain, [id number] [facility] - Forms: ED Department Discharge Additional Instructions: The following information is given to patients seen in the emergency department who are being discharged to home. This information is to outline your options for follow-up care. We provide all patients seen in our emergency department with a follow-up referral. The need for follow-up, as well as the timing and circumstances, are variable depending upon the specifics of your emergency department visit. If you don't have a primary care physician on staff, we will provide you with a referral. We always advise you to contact your personal physician following an emergency department visit to inform them of the circumstance of the visit and for follow-up with them and/or the need for any referrals to a consulting specialist. The emergency department will also refer you to a specialist when appropriate. This referral assures that you have the opportunity for follow-up care with a specialist. All of these measure are taken in an effort to provide you with optimal care, which includes your follow-up. Under all circumstances we always encourage you to contact your private physician who remains a resource for coordinating your care. When calling for follow-up care, please make the office aware that this follow-up is from your re cent emergency room visit. If for any reason you are refused follow-up, please contact the [facility] Emergency Department at and asked to speak to the emergency department charge nurse. [facility] Primary Care [address] [place] [address] [place] [address] Thank you for choosing the [facility] emergency department in [place] for your medical needs today. It was a pleasure caring for you. Today you were seen in the emergency department for back pain. 1. The medication you received today does cause drowsiness, so do not drive for the remaining day 2. When resting please lay on a flat firm surface. Limit your immobility to prevent muscle stiffness. Get up to ambulate/move around/gentle stretching multiple times throughout the day. May alternate heat and ice to the painful areas 3. Tylenol and Ibuprofen as needed for back pain. Otherwise take the prescribed Flexeril as directed. Flexeril as a muscle relaxant, this medication may cause drowsiness a do not take it will driving her needing to be functioning outside of the house. 4. Please follow-up with your primary care provider as we discussed. Keep your appointment for your back MRI and follow-up with your provider for further pain management. Return to the ED as needed and as discussed. Sepsis Event Note (ED) - Focused Exam Vital Signs: Vital Signs Temp Pulse Resp BP Pulse Ox 03/29/20 17:37 97 F 100 20 137/75 95
[2020-03-29] MEDS ORDERED: Orphenadrine 60 MG/2 ML Inj IM ONE (17:45)
[2020-03-29] MEDS ORDERED: methylPREDNISolone Sodium Succinate 125 MG/2 ML SDV IM ONE (17:45)
[2020-03-29 18:22] VITALS: BP 134/70; PULSE 98
== END 2020-03-29 18:22 | disposition home or self-care (01) ==
LOC: MW.ED 17:25
DX: M54.5 Low back pain (principal); G89.29 Other chronic pain; J45.909 Unspecified asthma, uncomplicated; K21.9 Gastro-esophageal reflux disease without esophagitis; E66.9 Obesity, unspecified; Z68.43 Body mass index [BMI] 50.0-59.9, adult; Z91.041 Radiographic dye allergy status; Z79.899 Other long term (current) drug therapy
CPT/HCPCS: 96372; 99283; J2360; J2930

== ENCOUNTER 2020-05-10 07:20 | Emergency (ER) | payer MEDICAID, OTHER ==
[2020-05-10] MEDS ORDERED: Aspirin 81 MG Tab.Chew PO ONE (07:46)
--- NOTE | 2020-05-10 07:50 | EDM.PDOC ---
ED HPI GENERAL MEDICAL PROBLEM - General Chief Complaint: General Stated Complaint: BREATHING PROBLEM Time Seen by Provider: 05/10/20 07:25 - History of Present Illness INITIAL COMMENTS - FREE TEXT/NARRATIVE: History of present illness: This patient was part of a group in an office that had diarrhea and GI symptoms. She took loperamide and got better. She was told she might be dehydrated. Her urinalysis was normal. Last night during the night she felt like she had palpitations. When she checked her pulse with a pulse oximeter while she had a good oxygen saturation she had a pulse that at times was as low as 20. Usually it was about 80 which is normal for her. She also had a normal pulse on her blood pressure cuff and her blood pressure was normal. The patient says occasionally during the night she is having these episodes of palpitations. When she has them she feels uncomfortable and she describes the uncomfortable feeling as a pressure in the anterior chest. Patient is obese and otherwise low risk for cardiac events. She is not treated for diabetes hypertension or cholesterol. She does not smoke. She does not have anybody in the family that had atherosclerotic heart disease and her parents had hypertension only in their extreme old age. Also says she has an infected tooth for a month on the left side of her jaw and it has not been treated [] Review of systems: As per history of present illness and below otherwise all systems reviewed and negative. Past medical history: As per history of present illness and as reviewed below otherwise noncontributory. Surgical history: As per history of present illness and as reviewed below otherwise noncontributory. Social history: No reported history of drug or alcohol abuse. Family history: As per history of present illness and as reviewed below otherwise noncontributory. Physical exam: Constitutional -patient has an unhealthy obesity with a BMI of 48.4. Well developed, well-nourished and in no acute distress HEENT - normocephalic, no evidence of trauma - external nose and mouth normal - no mass in neck and no JVD - mucosae moist. There is some inflammation around the carious teeth in the upper left maxillary area EYES - full EOM, PERRL, no icterus - no evidence of inflammation, injection, or drainage Respiratory - no respiratory distress, equal bilateral expansion, lungs clear to auscultation and no abnormal lung sounds Cardiovascular - Regular Rhythm with S1 and S2 appreciated and no murmur, gallop or rub. GI - abdomen soft without distension or organomegaly - normal bowel sounds - no guard or rebound Musculoskeletal no gross deformity of long bones or joints - no tenderness, swelling or edema Neurologic - Alert and oriented times four - CN II-XII grossly intact - motor sensory and coordination symmetrically normal Psychiatric - appropriate mood and affect with normal thought content Hematologic - No petechiae or purpura - mucosa appropriate color and sclera not pale - normal nail bed color and refill Integument - no rash or evidence of trauma - normal turgor Diagnostics: [] Therapeutics: [] Impression: [] Plan: [] Definitive disposition and diagnosis as appropriate pending reevaluation and review of above. general Pain Score (Numeric/FACES): 8 - Related Data Allergies Allergy/AdvReac Type Severity Reaction Status Date / Time Iodinated Contrast Media Allergy Anaphylactic Verified 03/29/20 17:37 [Iodinated Contrast Media - Shock IV Dye] Home Meds: Home Meds Montelukast [Singulair] 10 mg PO DAILY 08/02/13 [History] Albuterol [Proventil Neb Soln] 0.63 mg NEB DAILY 01/09/15 [History] Ibuprofen 600 mg PO ASDIRECTED PRN 05/30/18 [History] Cyclobenzaprine [Flexeril] 10 mg PO DAILY 05/23/19 [History] Gabapentin [Neurontin] 800 mg PO BID 05/23/19 [History] Meloxicam [Mobic] 15 mg PO DAILY 11/20/19 [History] Pantoprazole Sodium [Protonix] 40 mg PO DAILY 11/20/19 [History] Cyclobenzaprine [Flexeril] 10 mg PO TID PRN #21 tab 03/29/20 [Rx] Clindamycin HCl 300 mg PO TID #21 capsule 05/10/20 [Rx] Past Medical History Cardiovascular History: Reports: None Respiratory History: Reports: Asthma Gastrointestinal History: Reports: GERD, Other (See Below) Other Gastrointestinal History: Mass , abdominal hyst Genitourinary History: Reports: None [employer]VANCED History: Reports: Neurological History: Reports: Other (See Below) Other Neuro History: sleep apnea uses c-pap Psychiatric History: Reports: None Endocrine/Metabolic History: Reports: Obesity/BMI 30+ Hematologic History: Reports: Anemia Immunologic History: Reports: None Oncologic (Cancer) History: Reports: None Dermatologic History: Reports: None - Infectious Disease History Infectious Disease History: Reports: Chicken Pox - Past Surgical History Head Surgeries/Procedures: Reports: None HEENT Surgical History: Reports: Tonsillectomy Cardiovascular Surgical History: Reports: Other (See Below) GI Surgical History: Reports: Cholecystectomy Female Surgical History: Reports: D&C, Hysterectomy Other Musculoskeletal Surgeries/Procedures:: hip surgery Social & Family History - Family History Family Medical History: No Pertinent Family History Cardiac: Reports: [place] Endocrine/Metabolic: Reports: Diabetes, Type I, Diabetes, type II Oncologic: Reports: Breast, Pancreatic - Caffeine Use Caffeine Use: Reports: None ED ROS GENERAL - Review of Systems Review Of Systems: Comprehensive ROS is negative, except as noted in HPI. ED EXAM, GENERAL - Physical Exam Exam: See Below Free Text/Narrative:: My physical exam is in the HPI #1 Interpretation EKG Interpretation Comments: EKG shows a sinus rhythm with a heart rate of 87 and pulse [place] interval 180 axis -20 . Q waves in the inferior and anterior leads. Compared to 11/19/1989 no significant change. She has no history of myocardial event. There is no acute injury but apparently there might have been some myocardial damage in the past. Course - Vital Signs Text/Narrative:: Troponin was negative. Zio patch is attached. Patient discharged in satisfactory condition. Last Recorded V/S: Last Vital Signs Temp 35.3 C L 05/10/20 07:35 Pulse 81 05/10/20 09:38 Resp 16 05/10/20 07:35 BP 144/93 H 05/10/20 09:38 Pulse Ox 92 L 05/10/20 09:38 - Orders/Labs/Meds Orders: Active Orders 24 hr Category Date Time Status EKG Documentation Completion [RC] AM Care 05/10/20 07:36 Active Zio Holter Monitor > 48 Hours [RC] .PRN Care 05/10/20 10:27 Active Labs: Laboratory Tests 05/10/20 05/10/20 05/10/20 Range/Units 08:04 08:04 08:04 WBC 9.25 (4.0-11.0) K/uL RBC 4.93 (4.30-5.90) M/uL Hgb 13.1 (12.0-16.0) g/dL Hct 41.3 (36.0-46.0) % MCV 83.8 (80.0-98.0) fL MCH 26.6 L (27.0-32.0) pg MCHC 31.7 (31.0-37.0) g/dL RDW Std Deviation 48.1 (28.0-62.0) fl RDW Coeff of Elvis 16 H (11.0-15.0) % Plt Count 335 (150-400) K/uL MPV 9.90 (7.40-12.00) fL Neut % (Auto) 74.2 (48.0-80.0) % Lymph % (Auto) 15.7 L (16.0-40.0) % [place] % (Auto) 4.9 (0.0-15.0) % Eos % (Auto) 4.8 (0.0-7.0) % Baso % (Auto) 0.4 (0.0-1.5) % Neut # (Auto) 6.9 H (1.4-5.7) K/uL Lymph # (Auto) 1.5 (0.6-2.4) K/uL [place] # (Auto) 0.5 (0.0-0.8) K/uL Eos # (Auto) 0.4 (0.0-0.7) K/uL Baso # (Auto) 0.0 (0.0-0.1) K/uL Nucleated RBC % 0.0 /100WBC Nucleated RBCs # 0 K/uL Sodium 141 (136-145) mmol/L Potassium 3.1 L (3.5-5.1) mmol/L Chloride 102 (98-107) mmol/L Carbon Dioxide 31.7 (21.0-32.0) mmol/L BUN 14 (7.0-18.0) mg/dL Creatinine 1.0 (0.6-1.0) mg/dL Est Cr Clr Drug Dosing 71.67 mL/min Estimated GFR (MDRD) 60.0 ml/min Glucose 104 (74-106) mg/dL Calcium 8.3 L (8.5-10.1) mg/dL Magnesium 2.1 (1.8-2.4) mg/dL Total Bilirubin 0.6 (0.2-1.0) mg/dL AST 35 (15-37) IU/L ALT 38 (14-63) IU/L Alkaline Phosphatase 101 (46-116) U/L Troponin I < 0.050 (0.000-0.056) ng/mL Total Protein 7.4 (6.4-8.2) g/dL Albumin 3.3 L (3.4-5.0) g/dL Globulin 4.1 H (2.6-4.0) g/dL Albumin/Globulin Ratio 0.8 L (0.9-1.6) 05/10/20 Range/Units 10:05 WBC (4.0-11.0) K/uL RBC (4.30-5.90) M/uL Hgb (12.0-16.0) g/dL Hct (36.0-46.0) % MCV (80.0-98.0) fL MCH (27.0-32.0) pg MCHC (31.0-37.0) g/dL RDW Std Deviation (28.0-62.0) fl RDW Coeff of Elvis (11.0-15.0) % Plt Count (150-400) K/uL MPV (7.40-12.00) fL Neut % (Auto) (48.0-80.0) % Lymph % (Auto) (16.0-40.0) % [place] % (Auto) (0.0-15.0) % Eos % (Auto) (0.0-7.0) % Baso % (Auto) (0.0-1.5) % Neut # (Auto) (1.4-5.7) K/uL Lymph # (Auto) (0.6-2.4) K/uL [place] # (Auto) (0.0-0.8) K/uL Eos # (Auto) (0.0-0.7) K/uL Baso # (Auto) (0.0-0.1) K/uL Nucleated RBC % /100WBC Nucleated RBCs # K/uL Sodium (136-145) mmol/L Potassium (3.5-5.1) mmol/L Chloride (98-107) mmol/L Carbon Dioxide (21.0-32.0) mmol/L BUN (7.0-18.0) mg/dL Creatinine (0.6-1.0) mg/dL Est Cr Clr Drug Dosing mL/min Estimated GFR (MDRD) ml/min Glucose (74-106) mg/dL Calcium (8.5-10.1) mg/dL Magnesium (1.8-2.4) mg/dL Total Bilirubin (0.2-1.0) mg/dL AST (15-37) IU/L ALT (14-63) IU/L Alkaline Phosphatase (46-116) U/L Troponin I < 0.050 (0.000-0.056) ng/mL Total Protein (6.4-8.2) g/dL Albumin (3.4-5.0) g/dL Globulin (2.6-4.0) g/dL Albumin/Globulin Ratio (0.9-1.6) Meds: Medications Discontinued Medications Generic Name Dose Route Start Last Admin Trade Name Freq PRN Reason Stop Dose Admin Aspirin 324 mg 05/10/20 07:46 05/10/20 08:00 Aspirin 81 Mg Tab.Chew PO 05/10/20 07:47 324 mg ONETIME ONE Administration Potassium Chloride 40 meq 05/10/20 09:09 05/10/20 09:13 Potassium Chloride 10% 20 Meq/15 Ml Soln 30 Ml Ud Cup PO 05/10/20 09:10 40 meq ONETIME ONE Administration Departure - Departure Time of Disposition: 10:54 Disposition: Home, Self-Care 01 Condition: Good Clinical Impression: Palpitations, Chest pain - Discharge Information Prescriptions: Clindamycin HCl 300 mg PO TID #21 capsule Instructions: Nonspecific Chest Pain, Adult, [id number], Palpitations Referrals: Valery Lomas [facility]ICAL MASSAGE THERAPIST [Primary Care Provider] - Forms: ED Department Discharge Additional Instructions: [facility] - Primary Care [facility] [place] [id number] [facility] [address] [place] [id number] [facility] - cardiology [address] [place] [id number] The following information is given to patients seen in the emergency department who are being discharged to home. This information is to outline your options for follow-up care. We provide all patients seen in our emergency department with a follow-up referral. The need for follow-up, as well as the timing and circumstances, are variable depending upon the specifics of your emergency department visit. If you don't have a primary care physician on staff, we will provide you with a referral. We always advise you to contact your personal physician following an emergency department visit to inform them of the circumstance of the visit and for follow-up with them and/or the need for any referrals to a consulting specialist. The emergency department will also refer you to a specialist when appropriate. This referral assures that you have the opportunity for follow-up care with a specialist. All of these measure are taken in an effort to provide you with optimal care, which includes your follow-up. Under all circumstances we always encourage you to contact your private physician who remains a resource for coordinating your care. When calling for follow-up care, please make the office aware that this follow-up is from your recent emergency room visit. If for any reason you are refused follow-up, please contact the [facility] Emergency Department at and asked to speak to the emergency department charge nurse. Sepsis Event Note (ED) - Evaluation Sepsis Screening Result: No Definite Risk - Focused Exam Vital Signs: Vital Signs Temp Pulse Resp BP Pulse Ox 05/10/20 09:38 81 144/93 H 92 L 05/10/20 07:35 35.3 C L 100 16 139/96 H 95 - My Orders Last 24 Hours: My Active Orders 05/10/20 07:36 EKG Documentation Completion [RC] AM 05/10/20 10:27 Zio Holter Monitor > 48 Hours [RC] .PRN - Assessment/Plan Last 24 Hours: My Active Orders 05/10/20 07:36 EKG Documentation Completion [RC] AM 05/10/20 10:27 Zio Holter Monitor > 48 Hours [RC] .PRN
[2020-05-10 08:34] LABS: CARBON DIOXIDE,CO2 31.7 mmol/L (21.0-32.0); POTASSIUM,K 3.1 mmol/L (3.5-5.1)
[2020-05-10] MEDS ORDERED: Potassium Chloride 10% 20 MEQ/15 ML Soln 30 ML UD Cup PO ONE (09:09)
[2020-05-10 11:17] VITALS: BP 148/78; PULSE 89
== END 2020-05-10 11:14 | disposition home or self-care (01) ==
LOC: MW.ED 07:20
DX: R00.2 Palpitations (principal); R07.89 Other chest pain; J45.909 Unspecified asthma, uncomplicated; K21.9 Gastro-esophageal reflux disease without esophagitis; E66.9 Obesity, unspecified; Z68.42 Body mass index [BMI] 45.0-49.9, adult; Z91.041 Radiographic dye allergy status; Z79.899 Other long term (current) drug therapy
CPT/HCPCS: 36415; 80053; 83735; 84484; 85025; 93005; 99285; A9270

== ENCOUNTER 2020-11-15 10:23 | Emergency (ER) | payer OTHER ==
--- NOTE | 2020-11-15 10:35 | EDM.PDOC ---
ED HPI GENERAL MEDICAL PROBLEM - General Stated Complaint: COVID Time Seen by Provider: 11/15/20 10:25 Source of Information: Reports: Patient History Limitations: Reports: No Limitations - History of Present Illness INITIAL COMMENTS - FREE TEXT/NARRATIVE: HISTORY AND PHYSICAL: History of present illness: Patient is a 45-year-old female who presents emergency room today with concern of known COVID-19 diagnosis since 11/10/2020, 5 days ago, with complaints of shakiness and concern for possible dehydration secondary to COVID- 19 infection. Patient states that she did receive monoclonal antibody infusion on 11/12/2020 as she has asthma and was considered higher risk. Patient states that she has been using her inhaler which she does feel somewhat helps her symptoms. Patient states that she has had a decrease in appetite but states that she has been able to eat and drink but states that she feels "dehydrated "and states that she thinks this might be why she is shaky. Patient states that in general she has had all the symptoms of Covid including chest pain, cough, sore throat, nasal congestion/stuffy runny nose, generalized body aches. However, patient states today her main complaint is shaky and possible dehydration. Patient states over the weekend she did have a few episodes of nonbilious nonbloody vomiting patient states that she has not taken anything for her symptoms today. Patient denies any vomiting today. Patient does not express worsening chest pain or shortness of breath. Patient denies headache, neck stiff ness, change in vision, syncope, or near syn cope. Denies abdominal pain, diarrhea, constipation, or dysuria. Has not noted any blood in urine or stool. Review of systems: As per history of present illness and below otherwise all systems reviewed and negative. Past medical history: As per history of present illness and as reviewed below otherwise noncontributory. Surgical history: As per history of present illness and as reviewed below otherwise noncontributory. Social history: See social history for further information Family history: As per history of present illness and as reviewed below otherwise noncontributory. Physical exam: General: Patient is alert, oriented, and in no acute distress. Patient sitting comfortably on exam table. Vitals stable and reviewed by me. Patient is anxious appearing. HEENT: Atraumatic, normocephalic, pupils equal and reactive bilaterally, negative for conjunctival pallor or scleral icterus, neck supple, nontender, trachea midline. No drooling or trismus noted. No meningeal signs. No hot potato voice noted. Lungs: Clear to auscultation, breath sounds equal bilaterally, chest nontender. Heart: S1S2, regular rate and rhythm without overt murmur Abdomen: Soft, nondistended, nontender. Negative for masses or hepatosplenomegaly. Negative for costovertebral tenderness. Pelvis: Stable nontender. Genitourinary: Deferred. Rectal: Deferred. Skin: Intact, warm, dry. No lesions or rashes noted. Extremities: Atraumatic, negative for cords or calf pain. Neurovascular unremarkable. Neuro: Awake, alert, oriented. Cranial nerves II through XII unremarkable. Cerebellum unremarkable. Motor and sensory unremarkable throughout. Exam nonfocal. Notes: Patient is a 45-year-old female, with a history of known diagnosis of COVID-19 x5 days, who presents emergency room today with concern of feeling shaky and possible dehydration. Upon arrival to the ED, patient is vitally stable, anxious otherwise well-appearing on exam. Will obtain obtain IV access and provide a normal saline bolus, Zofran, and basic lab work and reassess patient. Mild derangements of CBC unremarkable. CMP shows mild hyponatremia at 3.4 with mild elevation of AST at 83 and alk phos at 135, otherwise mild derangements of CMP unremarkable. hCG negative. Upon reevaluation of patient, she expresses improvement of her symptoms today in the emergency room. Strict return precautions thoroughly discussed with patient. Discussed importance for follow-up with primary care provider following COVID-19 current restrictions. Voices understanding and is agreeable to plan of care. Denies any further questions or concerns at this time. Diagnostics: CBC, CMP, hCG Therapeutics: Normal saline, Zofran, Ativan Prescription: Zofran Impression: COVID-19 viral infection Plan: 1. Your vital signs and oxygen saturation are well enough that you were able to monitor your symptoms at home. Continue to monitor for trouble breathing, new confusion or inability to arouse, bluish lips or face or any of the other symptoms we discussed -if this occurs please return to the emergency room.Continue to monitor your health at home for worsening symptoms so that you can be taken care of and treated quickly if needed. 2. Please self quarantine until 10 days have passed since your symptoms began AND you are fever free (<100.4 degrees fahrenheit) for 24 hours without the use of fever-reducing medications AND symptoms are improving. You should restrict activities outside of your home, except for getting medical care. Do not go to work, school, or public areas. Avoid using public transportation, ride-sharing, or taxis. Inform any persons that you have been in contact with since you started becoming symptomatic that you have tested positive; they should be made aware and take the appropriate steps as needed. 3. Take the medications as we prescribed as discussed. 4. You may alternate Tylenol and ibuprofen as needed for pain and fever management. 5. The [facility] will be calling you and following up with you. The [place] COVID 19 Hotline phone number , They are open Sunday - Sunday 7am - 7pm. Follow up with your primary care provider for re-evaluation and re-testing after quarantine and discuss when you should be seen. 6. For more specific guidelines regarding isolation/quarantine please visit this website. https://www.health.[place].gov/sites/www/files/documents/Files/MIKE/coronavir us/Factsheet_for_People_With_COVID-19.pdf Definitive disposition and diagnosis as appropriate pending reevaluation and review of above. - Related Data Allergies Allergy/AdvReac Type Severity Reaction Status Date / Time Iodinated Contrast Media Allergy Anaphylactic Verified 11/15/20 11:26 [Iodinated Contrast Media - Shock IV Dye] Home Meds: Home Meds Montelukast [Singulair] 10 mg PO DAILY 08/02/13 [History] Albuterol [Proventil Neb Soln] 0.63 mg NEB DAILY 01/09/15 [History] Ibuprofen 600 mg PO ASDIRECTED PRN 05/30/18 [History] Cyclobenzaprine [Flexeril] 10 mg PO DAILY 05/23/19 [History] Gabapentin [Neurontin] 800 mg PO BID 05/23/19 [History] Meloxicam [Mobic] 15 mg PO DAILY 11/20/19 [History] Pantoprazole Sodium [Protonix] 40 mg PO DAILY 11/20/19 [History] Cyclobenzaprine [Flexeril] 10 mg PO TID PRN #21 tab 03/29/20 [Rx] Clindamycin HCl 300 mg PO TID #21 capsule 05/10/20 [Rx] Ondansetron [Zofran ODT] 4 mg PO Q6H PRN #8 tab.dis 11/15/20 [Rx] Past Medical History Cardiovascular History: Reports: None Respiratory History: Reports: Asthma Gastrointestinal History: Reports: GERD, Other (See Below) Other Gastrointestinal History: Mass , abdominal hyst Genitourinary History: Reports: None HOSPITAL ADMISSIONS OFFICER History: Reports: Neurological History: Reports: Other (See Below) Other Neuro History: sleep apnea uses c-pap Psychiatric History: Reports: None Endocrine/Metabolic History: Reports: Obesity/BMI 30+ Hematologic History: Reports: Anemia Immunologic History: Reports: None Oncologic (Cancer) History: Reports: None Dermatologic History: Reports: None - Infectious Disease History Infectious Disease History: Reports: Chicken Pox - Past Surgical History Head Surgeries/Procedures: Reports: None HEENT Surgical History: Reports: Tonsillectomy Cardiovascular Surgical History: Reports: Other (See Below) Other Cardiovascular Surgeries/Procedures: angiogram GI Surgical History: Reports: Cholecystectomy Female Surgical History: Reports: D&C, Hysterectomy Other Musculoskeletal Surgeries/Procedures:: hip surgery Social & Family History - Family History Family Medical History: No Pertinent Family History Cardiac: Reports: MS Endocrine/Metabolic: Reports: Diabetes, Type I, Diabetes, type II Oncologic: Reports: Breast, Pancreatic - Caffeine Use Caffeine Use: Reports: Coffee, Energy Drinks, Soda ED ROS GENERAL - Review of Systems Review Of Systems: Comprehensive ROS is negative, except as noted in HPI. ED EXAM, GENERAL - Physical Exam Exam: See Below (see dictation) Course - Vital Signs Last Recorded V/S: Last Vital Signs Temp 97.4 F 11/15/20 11:27 Pulse 92 11/15/20 11:27 Resp 16 11/15/20 11:27 BP 152/88 H 11/15/20 11:27 Pulse Ox 94 L 11/15/20 11:27 - Orders/Labs/Meds Labs: Laboratory Tests 11/15/20 11/15/20 11/15/20 Range/Units 12:09 12:09 12:09 WBC 6.85 (4.0-11.0) K/uL RBC 5.09 (4.30-5.90) M/uL Hgb 13.4 (12.0-16.0) g/dL Hct 42.3 (36.0-46.0) % MCV 83.1 (80.0-98.0) fL MCH 26.3 L (27.0-32.0) pg MCHC 31.7 (31.0-37.0) g/dL RDW Std Deviation 48.4 (28.0-62.0) fl RDW Coeff of Elvis 16 H (11.0-15.0) % Plt Count 312 (150-400) K/uL MPV 9.50 (7.40-12.00) fL Neut % (Auto) 80.8 H (48.0-80.0) % Lymph % (Auto) 12.1 L (16.0-40.0) % [place] % (Auto) 6.7 (0.0-15.0) % Eos % (Auto) 0.3 (0.0-7.0) % Baso % (Auto) 0.1 (0.0-1.5) % Neut # (Auto) 5.5 (1.4-5.7) K/uL Lymph # (Auto) 0.8 (0.6-2.4) K/uL [place] # (Auto) 0.5 (0.0-0.8) K/uL Eos # (Auto) 0.0 (0.0-0.7) K/uL Baso # (Auto) 0.0 (0.0-0.1) K/uL Nucleated RBC % 0.0 /100WBC Nucleated RBCs # 0 K/uL Sodium 142 (136-145) mmol/L Potassium 3.4 L (3.5-5.1) mmol/L Chloride 102 (98-107) mmol/L Carbon Dioxide 31.1 (21.0-32.0) mmol/L BUN 12 (7.0-18.0) mg/dL Creatinine 0.9 (0.6-1.0) mg/dL Est Cr Clr Drug Dosing 78.79 mL/min Estimated GFR (MDRD) > 60.0 ml/min Glucose 101 (74-106) mg/dL Calcium 8.7 (8.5-10.1) mg/dL Total Bilirubin 0.4 (0.2-1.0) mg/dL AST 83 H (15-37) IU/L ALT 49 (14-63) IU/L Alkaline Phosphatase 135 H (46-116) U/L Total Protein 7.9 (6.4-8.2) g/dL Albumin 3.3 L (3.4-5.0) g/dL Globulin 4.6 H (2.6-4.0) g/dL Albumin/Globulin Ratio 0.7 L (0.9-1.6) HCG, Qual NEGATIVE (NEG) Meds: Medications Discontinued Medications Generic Name Dose Route Start Last Admin Trade Name Freq PRN Reason Stop Dose Admin Sodium Chloride 1,000 mls @ 999 mls/hr 11/15/20 11:46 11/15/20 12:12 Normal Saline IV 11/15/20 12:46 999 mls/hr BOLUS ONE Administration Lorazepam 0.5 mg 11/15/20 11:47 11/15/20 12:13 Lorazepam 0.5 Mg Tab PO 11/15/20 11:48 0.5 mg ONETIME ONE Administration Ondansetron HCl 4 mg 11/15/20 11:47 11/15/20 12:13 Ondansetron 4 Mg/2 Ml Sdv IVPUSH 11/15/20 11:48 4 mg ONETIME ONE Administration Departure - Departure Time of Disposition: 12:53 Disposition: Home, Self-Care 01 Clinical Impression: COVID-19 virus infection - Discharge Information Prescriptions: Ondansetron [Zofran ODT] 4 mg PO Q6H PRN #8 tab.dis PRN Reason: Nausea/Vomiting Instructions: 10 Things You Can Do to Manage Your COVID-19 Symptoms at Home - [facility] (08/27/2019) Referrals: PCP,Not In Area [Primary Care Provider] - Forms: ED Department Discharge Additional Instructions: The following information is given to patients seen in the emergency department who are being discharged to home. This information is to outline your options for follow-up care. We provide all patients seen in our emergency department with a follow-up referral. The need for follow-up, as well as the timing and circumstances, are variable depending upon the specifics of your emergency department visit. If you don't have a primary care physician on staff, we will provide you with a referral. We always advise you to contact your personal physician following an emergency department visit to inform them of the circumstance of the visit and for follow-up with them and/or the need for any referrals to a consulting specialist. The emergency department will also refer you to a specialist when appropriate. This referral assures that you have the opportunity for follow-up care with a specialist. All of these measure are taken in an effort to provide you with optimal care, which includes your follow-up. Under all circumstances we always encourage you to contact your private physician who remains a resource for coordinating your care. When calling for follow-up care, please make the office aware that this follow-up is from your recent emergency room visit. If for any reason you are refused follow-up, please contact the [facility] at and asked to speak to the emergency department charge nurse. [facility] [address] [place], [place] [id number] [place] [address] 1. Your vital signs and oxygen saturation are well enough that you were able to monitor your symptoms at home. Continue to monitor for trouble breathing, new confusion or inability to arouse, bluish lips or face or any of the other symptoms we discussed -if this occurs please return to the emergency room.Continue to monitor your health at home for worsening symptoms so that you can be taken care of and treated quickly if needed. 2. Please self quarantine until 10 days have passed since your symptoms began AND you are fever free (<100.4 degrees fahrenheit) for 24 hours without the use of fever-reducing medications AND symptoms are improving. You should restrict activities outside of your home, except for getting medical care. Do not go to work, school, or public areas. Avoid using public transportation, ride-sharing, or taxis. Inform any persons that you have been in contact with since you started becoming symptomatic that you have tested positive; they should be made aware and take the appropriate steps as needed. 3. Take the medications as we prescribed as discussed. 4. You may alternate Tylenol and ibuprofen as needed for pain and fever management. 5. The [facility] will be calling you and following up with you. The [place] COVID 19 Hotline phone number , They are open Sunday - Sunday 7am - 7pm. Follow up with your primary care provider for re-evaluation and re-testing after quarantine and discuss when you should be seen. 6. For more specific guidelines regarding isolation/quarantine please visit this website. https://www.health.[place].gov/sites/www/files/documents/Files/MIKE/coronavir us/Factsheet_for_People_With_COVID-19.pdf Sepsis Event Note (ED) - Focused Exam Vital Signs: Vital Signs Temp Pulse Resp BP Pulse Ox 11/15/20 11:27 97.4 F 92 16 152/88 H 94 L
[2020-11-15 11:34] VITALS: BP 152/88; PULSE 92
[2020-11-15] MEDS ORDERED: Sodium Chloride 0.9% 1,000 ML IV ONE (11:46)
[2020-11-15] MEDS ORDERED: Ondansetron 4 MG/2 ML SDV IVPUSH ONE (11:47)
[2020-11-15] MEDS ORDERED: LORazepam 0.5 MG Tab PO ONE (11:47)
[2020-11-15 12:47] LABS: BLOOD UREA NITROGEN,BUN 12 mg/dL (7.0-18.0); CARBON DIOXIDE,CO2 31.1 mmol/L (21.0-32.0); CHLORIDE,CL 102 mmol/L (98-107); GLUCOSE RANDOM 101 mg/dL (74-106); POTASSIUM,K 3.4 mmol/L (3.5-5.1); SODIUM,NA 142 mmol/L (136-145)
== END 2020-11-15 13:25 | disposition home or self-care (01) ==
LOC: MW.ED 10:23
DX: U07.1 COVID-19 (principal); J45.909 Unspecified asthma, uncomplicated; K21.9 Gastro-esophageal reflux disease without esophagitis; E66.9 Obesity, unspecified; Z68.34 Body mass index [BMI] 34.0-34.9, adult; Z91.041 Radiographic dye allergy status; Z79.899 Other long term (current) drug therapy
CPT/HCPCS: 36415; 80053; 84703; 85025; 96374; 99284; A9270; J2405; J7030

== ENCOUNTER 2021-05-30 14:46 | Emergency (ER) | payer MEDICAID, OTHER | END 2021-05-30 16:19 | disposition left against medical advice (07) | LOC: MW.ED 14:46 | DX: R42 Dizziness and giddiness (principal); Z53.21 Procedure and treatment not carried out due to patient leaving prior to being seen by health care provider ==

== ENCOUNTER 2021-05-31 12:48 | Emergency (ER) | payer MEDICAID, OTHER ==
[2021-05-31] MEDS ORDERED: Ondansetron 4 MG/2 ML SDV IVPUSH ONE (13:30)
[2021-05-31] MEDS ORDERED: Sodium Chloride 0.9% 1,000 ML IV ONE (13:30)
[2021-05-31 14:30] LABS: BLOOD UREA NITROGEN,BUN 8 mg/dL (7.0-18.0); CARBON DIOXIDE,CO2 28.6 mmol/L (21.0-32.0); CHLORIDE,CL 103 mmol/L (98-107); GLUCOSE RANDOM 94 mg/dL (74-106); POTASSIUM,K 3.3 mmol/L (3.5-5.1); SODIUM,NA 139 mmol/L (136-145)
[2021-05-31 15:40] VITALS: BP 131/83; PULSE 97
[2021-05-31] MEDS ORDERED: Albuterol/Ipratropium 3.0-0.5 MG/3 ML Neb Soln NEB ONE (16:35)
== END 2021-05-31 17:56 | disposition home or self-care (01) ==
LOC: MW.ED 12:48
DX: J02.9 Acute pharyngitis, unspecified (principal); R79.1 Abnormal coagulation profile; K21.9 Gastro-esophageal reflux disease without esophagitis; E66.9 Obesity, unspecified; Z79.899 Other long term (current) drug therapy
CPT/HCPCS: 36415; 71045; 80053; 81001; 81025; 83880; 84484; 85025; 85379; 86308; 87651; 93005; 96374; 99284; J2405; J7030; 93010; 99283; J7620-GY

== ENCOUNTER 2021-06-05 08:35 | Emergency (ER) | payer MEDICAID, OTHER ==
[2021-06-05 09:22] LABS: BLOOD UREA NITROGEN,BUN 4 mg/dL (7.0-18.0); CHLORIDE,CL 105 mmol/L (98-107); GLUCOSE RANDOM 96 mg/dL (74-106); LIPASE 96 U/L (73-393); POTASSIUM,K 3.3 mmol/L (3.5-5.1); SODIUM,NA 141 mmol/L (136-145)
[2021-06-05 09:28] LABS: CARBON DIOXIDE,CO2 25.6 mmol/L (21.0-32.0)
[2021-06-05 11:20] VITALS: BP 116/59; PULSE 85
== END 2021-06-05 11:05 | disposition home or self-care (01) ==
LOC: MW.ED 08:35
DX: R06.00 Dyspnea, unspecified (principal); I11.0 Hypertensive heart disease with heart failure; I50.9 Heart failure, unspecified; J45.909 Unspecified asthma, uncomplicated; E66.9 Obesity, unspecified; Z68.42 Body mass index [BMI] 45.0-49.9, adult; Z79.899 Other long term (current) drug therapy; Z90.710 Acquired absence of both cervix and uterus; Z90.49 Acquired absence of other specified parts of digestive tract; Z79.01 Long term (current) use of anticoagulants; Z20.822 Contact with and (suspected) exposure to COVID-19
CPT/HCPCS: 36415; 71045; 71045-26; 80053; 80305-QW; 83690; 83880; 84484; 85025; 93005; 93010; 93970; 93970-26; 99284; 99284-25; U0002

== ENCOUNTER 2021-09-07 20:13 | Emergency (ER) | payer MEDICAID, OTHER ==
[2021-09-07] MEDS ORDERED: Ketorolac 60 MG/2 ML SDV IM ONE (22:12)
[2021-09-08 05:47] VITALS: BP 125/71; PULSE 70
== END 2021-09-07 22:36 | disposition home or self-care (01) ==
LOC: MW.ED 20:13
DX: M54.42 Lumbago with sciatica, left side (principal); I11.0 Hypertensive heart disease with heart failure; I50.9 Heart failure, unspecified; K21.9 Gastro-esophageal reflux disease without esophagitis; E66.9 Obesity, unspecified; Z68.42 Body mass index [BMI] 45.0-49.9, adult; Z91.041 Radiographic dye allergy status; Z79.899 Other long term (current) drug therapy
CPT/HCPCS: 96372; 99283; J1885

== ENCOUNTER 2022-02-18 11:14 | Emergency (ER) | payer BC ==
[2022-02-18] MEDS ORDERED: Torsemide 20 MG Tab PO ONE (11:40)
[2022-02-18 12:16] VITALS: BP 130/74; PULSE 68
== END 2022-02-18 12:15 | disposition home or self-care (01) ==
LOC: MW.ED 11:14
DX: Z76.0 Encounter for issue of repeat prescription (principal); Z91.041 Radiographic dye allergy status; Z79.899 Other long term (current) drug therapy
CPT/HCPCS: 99281; A9270

== ENCOUNTER 2022-06-28 12:03 | Emergency (ER) | payer MEDICAID, OTHER ==
[2022-06-28 12:40] VITALS: BP 107/66; PULSE 79
== END 2022-06-28 12:59 | disposition home or self-care (01) ==
LOC: MW.ED 12:03
DX: R21 Rash and other nonspecific skin eruption (principal); I11.0 Hypertensive heart disease with heart failure; I50.9 Heart failure, unspecified; J45.909 Unspecified asthma, uncomplicated; E66.9 Obesity, unspecified; Z68.31 Body mass index [BMI] 31.0-31.9, adult; Z71.1 Person with feared health complaint in whom no diagnosis is made; Z91.041 Radiographic dye allergy status; Z91.040 Latex allergy status; Z79.899 Other long term (current) drug therapy
CPT/HCPCS: 99282; 99283

== ENCOUNTER 2022-10-02 20:46 | Emergency (ER) | payer MEDICAID, OTHER ==
[2022-10-02 21:15] LABS: BASOPHILS PERCENT AUTO 0.5 % (0.0-1.5); EOSINOPHILS ABSOLUTE AUTO 0.9 K/uL (0.0-0.7); EOSINOPHILS PERCENT AUTO 10.5 % (0.0-7.0); HEMOGLOBIN 13.1 g/dL (12.0-16.0); LYMPHOCYTES ABSOLUTE AUTO 2.1 K/uL (0.6-2.4); MEAN CORPUSCULAR HEMOGLOBIN 28.9 pg (27.0-32.0); MEAN CORPUSCULAR HGB CONC 32.8 g/dL (31.0-37.0); MEAN CORPUSCULAR VOLUME 88.3 fL (80.0-98.0); MONOCYTES ABSOLUTE AUTO 0.4 K/uL (0.0-0.8); MONOCYTES PERCENT AUTO 4.5 % (0.0-15.0); NEUTROPHILS ABSOLUTE AUTO 5.4 K/uL (1.4-5.7); NEUTROPHILS PERCENT AUTO 60.5 % (48.0-80.0); NRBC ABSOLUTE 0 K/uL; PLATELET COUNT,PLT 368 K/uL (150-400); RED BLOOD CELL COUNT 4.53 M/uL (4.30-5.90); WHITE BLOOD CELL COUNT,WBC 8.87 K/uL (4.0-11.0)
[2022-10-02 21:39] LABS: CALCIUM 8.8 mg/dL (8.5-10.1); CARBON DIOXIDE,CO2 30.1 mmol/L (21.0-32.0); CREATININE 1.5 mg/dL (0.6-1.0); EST CRCL DRUG DOSING (CG) 46.27 mL/min; POTASSIUM,K 3.9 mmol/L (3.5-5.1)
[2022-10-03 00:27] VITALS: BP 127/91; PULSE 74
== END 2022-10-03 00:25 | disposition home or self-care (01) ==
LOC: MW.ED 20:46
DX: R07.9 Chest pain, unspecified (principal); I11.0 Hypertensive heart disease with heart failure; I50.9 Heart failure, unspecified; G47.30 Sleep apnea, unspecified; E66.9 Obesity, unspecified; Z68.42 Body mass index [BMI] 45.0-49.9, adult; Z91.014 Allergy to mammalian meats; Z91.040 Latex allergy status; Z79.899 Other long term (current) drug therapy
CPT/HCPCS: 36415; 71045; 71045-26; 80048; 84484; 85025; 93005; 93010; 99283; 99285

== ENCOUNTER 2022-10-23 15:55 | Emergency (ER) | payer MEDICAID, OTHER ==
[2022-10-23] MEDS ORDERED: Sodium Chloride 0.9% 10 ML Syringe FLUSH PRN (17:26)
[2022-10-23] MEDS ORDERED: Sodium Chloride 0.9% 2.5 ML Syringe FLUSH PRN (17:26)
[2022-10-23] MEDS ORDERED: Ketorolac 30 MG/ML SDV IVPUSH ONE (17:26)
[2022-10-23 18:20] LABS: BASOPHILS PERCENT AUTO 0.3 % (0.0-1.5); EOSINOPHILS ABSOLUTE AUTO 0.6 K/uL (0.0-0.7); EOSINOPHILS PERCENT AUTO 5.8 % (0.0-7.0); HEMATOCRIT 40.1 % (36.0-46.0); LYMPHOCYTES PERCENT AUTO 21.4 % (16.0-40.0); MEAN CORPUSCULAR HEMOGLOBIN 28.8 pg (27.0-32.0); MEAN CORPUSCULAR HGB CONC 32.4 g/dL (31.0-37.0); MEAN CORPUSCULAR VOLUME 88.7 fL (80.0-98.0); MONOCYTES ABSOLUTE AUTO 0.4 K/uL (0.0-0.8); MONOCYTES PERCENT AUTO 4.2 % (0.0-15.0); NEUTROPHILS ABSOLUTE AUTO 6.5 K/uL (1.4-5.7); NEUTROPHILS PERCENT AUTO 68.3 % (48.0-80.0); NRBC ABSOLUTE 0 K/uL; PLATELET COUNT,PLT 360 K/uL (150-400); RED BLOOD CELL COUNT 4.52 M/uL (4.30-5.90); WHITE BLOOD CELL COUNT,WBC 9.45 K/uL (4.0-11.0)
[2022-10-23 18:33] LABS: INR 1.02 (0.86-1.11)
[2022-10-23 18:59] LABS: CALCIUM 8.7 mg/dL (8.5-10.1); CARBON DIOXIDE,CO2 29.3 mmol/L (21.0-32.0); CREATININE 1.7 mg/dL (0.6-1.0); EST CRCL DRUG DOSING (CG) 40.82 mL/min; POTASSIUM,K 3.6 mmol/L (3.5-5.1)
[2022-10-23 19:49] VITALS: BP 100/55; PULSE 71
== END 2022-10-23 19:30 | disposition home or self-care (01) ==
LOC: MW.ED 15:55
DX: M54.50 Low back pain, unspecified (principal); G89.29 Other chronic pain; I95.9 Hypotension, unspecified; R07.9 Chest pain, unspecified; E66.9 Obesity, unspecified; J45.909 Unspecified asthma, uncomplicated; I11.0 Hypertensive heart disease with heart failure; I50.9 Heart failure, unspecified; Z79.899 Other long term (current) drug therapy; Z91.040 Latex allergy status; Z91.041 Radiographic dye allergy status; Z68.42 Body mass index [BMI] 45.0-49.9, adult
CPT/HCPCS: 36415; 71046; 80048; 83880; 84484; 85025; 85610; 93005; 96374; 99284; J1885; J3490; 93010

== ENCOUNTER 2023-10-14 19:45 | Observation (INO) | payer OTHER, MEDICARE ==
[2023-10-14 20:31] LABS: BASOPHILS ABSOLUTE AUTO 0.03 K/uL (0.00-0.20); BASOPHILS PERCENT AUTO 0.1 % (0.0-1.0); HEMOGLOBIN 12.7 g/dL (12.0-16.0); IMMATURE GRAN ABSOLUTE AUTO 0.41 K/uL (0.00-0.05); LYMPHOCYTES ABSOLUTE AUTO 1.63 K/uL (1.00-4.80); LYMPHOCYTES PERCENT AUTO 7.8 % (24.0-44.0); MEAN CORPUSCULAR HEMOGLOBIN 28.3 pg (28.0-32.0); MEAN CORPUSCULAR HGB CONC 32.6 g/dL (32.0-36.0); MEAN CORPUSCULAR VOLUME 86.9 fL (83.0-99.0); MEAN PLATELET VOLUME 9.5 fL (9.4-12.3); MONOCYTES ABSOLUTE AUTO 1.18 K/uL (0.00-0.80); MONOCYTES PERCENT AUTO 5.7 % (0.0-8.0); NEUTROPHILS ABSOLUTE AUTO 17.61 K/uL (1.80-7.70); NEUTROPHILS PERCENT AUTO 84.4 % (41.0-71.0); PLATELET COUNT,PLT 403 K/uL (150-400); RED BLOOD CELL COUNT 4.49 M/uL (4.10-5.30); WHITE BLOOD CELL COUNT,WBC 20.86 K/uL (3.9-11.3)
[2023-10-14 21:14] LABS: A/G RATIO 0.8 (0.9-1.6); ALANINE AMINOTRANSFERASE,ALT 25 IU/L (14-63); ALBUMIN 3.1 g/dL (3.4-5.0); ALKALINE PHOSPHATASE 109 U/L (46-116); ASPARTATE AMNIOTRANSFERASE,AST 17 IU/L (15-37); BILIRUBIN TOTAL 0.3 mg/dL (0.2-1.0); BLOOD UREA NITROGEN,BUN 28 mg/dL (7.0-18.0); CALCIUM 8.3 mg/dL (8.5-10.1); CARBON DIOXIDE,CO2 24.5 mmol/L (21.0-32.0); CHLORIDE,CL 104 mmol/L (98-107); CREATININE 1.3 mg/dL (0.6-1.0); EST CRCL DRUG DOSING (CG) 52.81 mL/min; ETHANOL BLOOD MEDICAL <3 mg/dL; GLUCOSE RANDOM 125 mg/dL (74-106); POTASSIUM,K 3.5 mmol/L (3.5-5.1); PROTEIN TOTAL,TP 7.2 g/dL (6.4-8.2); SODIUM,NA 138 mmol/L (136-145)
[2023-10-14 21:19] LABS: ESTIMATED GFR 50 mL/min (>60)
[2023-10-14 21:34] LABS: INR 0.99 (0.86-1.11)
[2023-10-14] MEDS: Sodium Chloride 0.9% 10 ML Syringe FLUSH PRN (22:47)
[2023-10-14] MEDS: Sodium Chloride 0.9% 2.5 ML Syringe FLUSH PRN (22:47)
[2023-10-14] MEDS ORDERED: Sodium Chloride 0.9% 10 ML Syringe FLUSH PRN (23:43)
[2023-10-14] MEDS ORDERED: Ondansetron 4 MG/2 ML SDV IVPUSH PRN (23:43)
[2023-10-14] MEDS ORDERED: Acetaminophen/HYDROcodone 325-5 MG Tab PO PRN (23:43)
[2023-10-14] MEDS ORDERED: Sodium Chloride 0.9% 2.5 ML Syringe FLUSH PRN (23:43)
[2023-10-15] MEDS: Acetaminophen 1,000 MG in Premix Bag 1 BAG IV SCH (00:31)
[2023-10-15] MEDS: Morphine 2 MG/ML SYRINGE IVPUSH PRN (03:54)
[2023-10-15 06:08] LABS: BASOPHILS ABSOLUTE AUTO 0.02 K/uL (0.00-0.20); BASOPHILS PERCENT AUTO 0.1 % (0.0-1.0); EOSINOPHILS ABSOLUTE AUTO 0.01 K/uL (0.00-0.45); EOSINOPHILS PERCENT AUTO 0.1 % (0.0-6.0); HEMATOCRIT 38.4 % (37.0-47.0); HEMOGLOBIN 12.2 g/dL (12.0-16.0); IMMATURE GRAN ABSOLUTE AUTO 0.08 K/uL (0.00-0.05); IMMATURE GRAN PERCENT AUTO 0.6 % (0.0-0.4); LYMPHOCYTES ABSOLUTE AUTO 1.67 K/uL (1.00-4.80); MEAN CORPUSCULAR HEMOGLOBIN 27.9 pg (28.0-32.0); MEAN CORPUSCULAR HGB CONC 31.8 g/dL (32.0-36.0); MEAN CORPUSCULAR VOLUME 87.7 fL (83.0-99.0); MEAN PLATELET VOLUME 10.3 fL (9.4-12.3); MONOCYTES ABSOLUTE AUTO 0.86 K/uL (0.00-0.80); MONOCYTES PERCENT AUTO 6.2 % (0.0-8.0); PLATELET COUNT,PLT 313 K/uL (150-400); RED BLOOD CELL COUNT 4.38 M/uL (4.10-5.30); WHITE BLOOD CELL COUNT,WBC 13.94 K/uL (3.9-11.3)
[2023-10-15 06:42] LABS: CALCIUM 8.2 mg/dL (8.5-10.1); CARBON DIOXIDE,CO2 27.7 mmol/L (21.0-32.0); CREATININE 1.3 mg/dL (0.6-1.0); EST CRCL DRUG DOSING (CG) 52.81 mL/min; POTASSIUM,K 4.2 mmol/L (3.5-5.1)
[2023-10-15] MEDS: Carvedilol 6.25 MG Tab PO SCH (08:00)
[2023-10-15] MEDS: Spironolactone 25 MG Tab PO SCH (08:01)
[2023-10-15] MEDS: Aspirin 81 MG Tab.EC PO SCH (08:01)
[2023-10-15] MEDS ORDERED: Non-Formulary Medication 1 Each (Sacubitril/Valsartan 1 EACH Tablet) PO SCH (09:00)
[2023-10-15 16:18] VITALS: BP 115/66; PULSE 60
== END 2023-10-15 17:50 | disposition home or self-care (01) ==
LOC: MW.ED 19:45 → MW.MS 23:31
PROVIDERS: ADMIT Surgery; ATTEND Surgery
DX: S02.2XXA Fracture of nasal bones, initial encounter for closed fracture (principal); V89.2XXA Person injured in unspecified motor-vehicle accident, traffic, initial encounter
CPT/HCPCS: 36415; 70450; 71250; 72125; 72128; 73030; 74176; 80048; 80053; 80307; 83735; 84484; 85025; 85610; 86850; 86900; 86901; 93005; 96365; 96366; 96375; 96376; 97162; 99285; A9270; G0378; J0131; J2270; J3360; J3490; 93010

== ENCOUNTER 2024-04-06 14:29 | Emergency (ER) | payer MEDICARE, MEDICAID ==
[2024-04-06] MEDS ORDERED: Sodium Chloride 0.9% 2.5 ML Syringe FLUSH PRN (15:10)
[2024-04-06 15:43] LABS: BASOPHILS ABSOLUTE AUTO 0.07 K/uL (0.00-0.20); BASOPHILS PERCENT AUTO 0.6 % (0.0-1.0); EOSINOPHILS PERCENT AUTO 9.1 % (0.0-6.0); HEMATOCRIT 37.9 % (37.0-47.0); HEMOGLOBIN 12.5 g/dL (12.0-16.0); IMMATURE GRAN ABSOLUTE AUTO 0.02 K/uL (0.00-0.05); IMMATURE GRAN PERCENT AUTO 0.2 % (0.0-0.4); LYMPHOCYTES ABSOLUTE AUTO 1.57 K/uL (1.00-4.80); LYMPHOCYTES PERCENT AUTO 14.2 % (24.0-44.0); MEAN CORPUSCULAR HEMOGLOBIN 28.5 pg (28.0-32.0); MEAN CORPUSCULAR VOLUME 86.3 fL (83.0-99.0); MEAN PLATELET VOLUME 9.5 fL (9.4-12.3); MONOCYTES ABSOLUTE AUTO 0.42 K/uL (0.00-0.80); MONOCYTES PERCENT AUTO 3.8 % (0.0-8.0); NEUTROPHILS ABSOLUTE AUTO 7.95 K/uL (1.80-7.70); NEUTROPHILS PERCENT AUTO 72.1 % (41.0-71.0); PLATELET COUNT,PLT 325 K/uL (150-400); RED BLOOD CELL COUNT 4.39 M/uL (4.10-5.30); WHITE BLOOD CELL COUNT,WBC 11.03 K/uL (3.9-11.3)
[2024-04-06] MEDS: Magnesium Sulf/Wat 2 GM/50 mL 2 GM in Premix Bag 1 BAG IV STA (15:49)
[2024-04-06] MEDS: Sodium Chloride 0.9% 10 ML Syringe FLUSH PRN (15:50)
[2024-04-06] MEDS: methylPREDNISolone Sodium Succinate 125 MG/2 ML SDV IVPUSH STA (15:50)
[2024-04-06 16:10] LABS: A/G RATIO 0.7 (0.9-1.6); BILIRUBIN TOTAL 0.7 mg/dL (0.2-1.0); CALCIUM 8.7 mg/dL (8.5-10.1); CARBON DIOXIDE,CO2 28.1 mmol/L (21.0-32.0); CREATININE 1.3 mg/dL (0.6-1.0); EST CRCL DRUG DOSING (CG) 52.81 mL/min; MAGNESIUM 2.4 mg/dL (1.8-2.4); POTASSIUM,K 3.8 mmol/L (3.5-5.1); PROTEIN TOTAL,TP 7.4 g/dL (6.4-8.2)
[2024-04-06 16:50] LABS: APPEARANCE,URINE HAZY; COLOR,URINE YELLOW; GLUCOSE,URINE >1000 mg/dL (NEGATIVE); PROTEIN,URINE TRACE mg/dL (NEGATIVE)
[2024-04-06 16:52] LABS: BILIRUBIN,URINE NEGATIVE (NEGATIVE); KETONES,URINE 5 mg/dL (NEGATIVE); LEUKOCYTE ESTERASE,URINE NEGATIVE (NEGATIVE); NITRITE,URINE NEGATIVE (NEGATIVE); OCCULT BLOOD,URINE TRACE (NEGATIVE); UROBILINOGEN,URINE 0.2 EU/dL (<2.0)
[2024-04-06 16:56] LABS: RBC,URINE 0-5 (0-2/HPF); WBC,URINE 0-1 (0-5/HPF)
[2024-04-06 16:57] LABS: BACTERIA,URINE FEW (NEGATIVE); EPITHELIAL CELLS,URINE FEW (NONE-FEW); MUCUS,URINE MODERATE (NONE-MOD)
[2024-04-06 17:18] VITALS: BP 131/87; PULSE 87
== END 2024-04-06 17:18 | disposition home or self-care (01) ==
LOC: MW.ED 14:29
DX: J45.21 Mild intermittent asthma with (acute) exacerbation (principal); I11.0 Hypertensive heart disease with heart failure; I50.9 Heart failure, unspecified; E66.9 Obesity, unspecified; Z90.49 Acquired absence of other specified parts of digestive tract; Z90.710 Acquired absence of both cervix and uterus; Z79.899 Other long term (current) drug therapy; Z79.51 Long term (current) use of inhaled steroids; Z79.82 Long term (current) use of aspirin; Z75.8 Other problems related to medical facilities and other health care; Z91.041 Radiographic dye allergy status; Z91.040 Latex allergy status; Z68.42 Body mass index [BMI] 45.0-49.9, adult
CPT/HCPCS: 36415; 80053; 81001; 83690; 83735; 83880; 84703; 85025; 87428; 93005; 96365; 96375; 99285; J2919; J3475; 93010; 99284